=== PATIENT | female | born 1975 | race Caucasian/White ===

== ENCOUNTER 2019-05-27 08:49 | Emergency (ER) | payer MEDICAID ==
[~2019-05-27] VITALS: Ht 165.1 cm; Wt 113.4 kg
[~2019-05-27 08:49] MED LIST: ALB5IS NEB; ALBU18 INH; ASPI81TA10 PO; ATEN50TA PO; BUPR300T30 PO; ENAL20TA PO; FLUT110A INH; GABA400C11 PO; HYDR-2595 PO; IBUP800T24 PO; LEVO100T8 PO; LORA-352 PO; MECL-87 PO; MONT10TA34 PO; MULT50TA14 PO; ONDA-143 PO; QUET200T4 PO
[2019-05-27 10:41] VITALS: BP 158/94
[2019-05-27] MEDS ORDERED: LIDOCAINE 1% HCL (LOCAL ANESTH.) INJ 20ML MDV IJ ONE (12:00)
[2019-05-27] MEDS ORDERED: BACITRACIN TOP OINT 1 UD PKG TOP ONE (12:30)
== END 2019-05-27 12:37 | disposition home or self-care (01) ==
LOC: ER 08:50
DX: S01.111A Laceration without foreign body of right eyelid and periocular area, initial encounter (principal); J44.9 Chronic obstructive pulmonary disease, unspecified; E11.9 Type 2 diabetes mellitus without complications; I10 Essential (primary) hypertension; F17.210 Nicotine dependence, cigarettes, uncomplicated; Z90.710 Acquired absence of both cervix and uterus; Z88.1 Allergy status to other antibiotic agents; Z88.2 Allergy status to sulfonamides; Z79.899 Other long term (current) drug therapy; Z79.1 Long term (current) use of non-steroidal anti-inflammatories (NSAID); W22.8XXA Striking against or struck by other objects, initial encounter; Y93.89 Activity, other specified; Y92.89 Other specified places as the place of occurrence of the external cause; Y99.8 Other external cause status
CPT/HCPCS: 12011; 70450; 99284; J2001

== ENCOUNTER 2024-05-29 15:07 | Inpatient (IN) | payer MEDICAID ==
[~2024-05-29] VITALS: Ht 162.6 cm; Wt 78.3 kg
[~2024-05-29 15:07] MED LIST changes: +ENAL1TAB48 PO; -ENAL20TA PO; +GABA-1251 PO; -GABA400C11 PO; +IBUP-1456 PO; -IBUP800T24 PO; -LORA-352 PO; +LORA10TA6 PO; -MECL-87 PO; +MECL-90 PO; +MONT-8 PO; -MONT10TA34 PO
--- NOTE | 2024-05-29 15:36 | ECG ---
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
[2024-05-29 16:42] LABS: Basophils # (auto) 0 10 ^3/uL (0-0.2); Basophils % (auto) 0.4 % (0.0-2.0); Eosinophils # (auto) 0 10 ^3/uL (0-0.8); Eosinophils % (auto) 0.1 % (0.0-7.0); Hematocrit 45.6 % (36.0-46.0); Hemoglobin 15.3 g/dL (12.2-16.2); Lymphocytes # (auto) 0.6 10 ^3/uL (0.4-5.4); Mean Corpuscular Hemoglobin 27.7 pg (28.0-32.0); Mean Corpuscular Hgb Conc. 33.5 g/dL (32.0-36.0); Mean Corpuscular Volume 82.8 fL (80.0-100.0); Monocytes # (auto) 1.1 10 ^3/uL (0-1.3); Monocytes % (auto) 14.1 % (0.0-12.0); Neutrophils # (auto) 6.2 10 ^3/uL (1.6-8.6); Neutrophils % (auto) 78.4 % (37.0-80.0); Nucleated Red Blood Cells % 0.2 %; Platelet Count (auto) 228 10^3/uL (140-450); Red Cell Distribution Width 15.5 % (11.8-14.3); White Blood Cell 7.9 10^3/uL (4.4-10.8)
--- NOTE | 2024-05-29 16:49 | DVH ---
CHEST RADIOGRAPH Indication: SOB Technique: Single frontal view of the chest was obtained Comparison: None FINDINGS: Lines and Tubes: None Lungs: Consolidation of the left lower lobe is noted may represent infiltrate atelectasis and/or smal l effusion. Pleura: No effusion. No pneumothorax. Cardiomediastinal contours: Unremarkable Bones: No acute osseous abnormality. IMPRESSION: 1. Increased density in the retrocardiac area of the left lower lobe.
[2024-05-29 16:52] LABS: Alanine Aminotransferase 25 U/L (7-40); Albumin 4.1 g/dL (3.2-4.8); Alkaline Phosphatase 103 U/L (46-116); Anion Gap 9 (5-15); Aspartate Aminotransferase 23 U/L (13-40); BUN/Creatinine Ratio 12.2 (10.0-20.0); Blood Urea Nitrogen 10 mg/dL (9-23); Calcium 9.5 mg/dL (8.7-10.4); Carbon Dioxide 30 mmol/L (20-31); Chloride 101 mmol/L (98-107); Glucose 102 mg/dL (74-106); Magnesium 1.9 mg/dL (1.6-2.6); Potassium 3.8 mmol/L (3.5-5.1); Sodium 140 mmol/L (136-145)
[2024-05-29 16:53] LABS: Bilirubin, Total 0.2 mg/dL (0.2-1.0); Total Protein 6.6 g/dL (5.7-8.2)
--- NOTE | 2024-05-29 16:59 | ED.PDOC ---
SOB-HPI HPI Comments HPI: Poor Historian. 49-year-old female presents to emergency department for evaluation want to do a history of multiple complains of nasal congestion, chest tightness, generalized weakness, productive cough. Patient denies any fever. Past Medcial History: Radha, CHF, COPD, costochondritis, asthma, kidney infection, Past Surgical History: , partial hysterectomy REVIEW OF SYSTEMS: CONSTITUTIONAL: Denies acute: fever, diaphoresis, chills, generalized weakness. HEAD: Denies acute: headache, photophobia Eyes: Denies acute: Double vision, vision loss, eye pain, eye discharge. EARS: Denies acute: tinnitus, hearing loss, ear discharge, ear pain, THROAT: Denies acute: sore throat, swelling, difficulty swallowing , pain with swallowing, change in voice. NECK: Denies acute: neck pain, neck swelling, stiff neck. HEART: Denies acute : chest pain, palpitations, LUNGS: Denies acute: SOB, wheezing, cough, hemoptysis ABDOMEN: Denies acute: abdominal pain, Nausea, Vomiting, diarrhea, melena , hematemesis, hematochezia SKIN: Denies acute: rash, redness, lesions, itchiness. EXTREMITIES: Denies acute: calf pain, numbness, tingling, weakness, denies pain in extremity. Denies acute: Low back pain. Neuro: Denies acute: focal neurological deficit, motor or sensory focal neurological deficit, tremors, seizure like activity, confusion, dizziness, change in mental status, loss of bowel or bladder function, cauda equina like symptoms. : Denies acute: dysuria, hematuria, flank pain, increase in urinary frequency. PSYCH: Denies acute: hallucination, suicidal ideation, homicidal ideation. FEMALE: Denies acute: abnormal vaginal bleeding, foul odor, unusual discharge. PHYSICAL EXAM: General: no acute distress, awake and alert. Head: normocephalic, atraumatic. Neck: supple, trachea is midline, no swelling. Throat: Normal phonation. Eyes:, no erythema, no purulent discharge, no proptosis, no icterus. Heart: regular rate, regular rhythm, no significant murmur appreciated. Lungs: no apparent respiratory distress, Able to speak in full sentences. Minimal wheezing, mild rhonchi, no crackles. No stridors Clear to auscultation bilaterally. Abdomen: non tender to palpation, non distended, soft, no guarding, no rebound, + bowel sounds. Neuro: Awake, Alert, oriented to name, self, situation, follows commands GCS=15. Speech is normal. Skin: no petechia, no purpura, no cyanosis, non-pale, not jaundice. Lower extremities: --1/4 - Pitting edema no deformity, no focal swelling, no calf TTP. Makes eye contact. moves all four extremities. Face: no apparent facial droop. 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 History: 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 Family History Family History: No family hx of Cancer, No family hx of DM, No family hx of Heart dottie, No family hx of HTN, No family hx of Stroke Social History Smoker: Cigarettes, Less Than 1 Pack/Day Alcohol: Occasionally Drugs: Denies Drug Use Lives In: Home X-Ray, Labs, Meds, VS Vital Signs Date Time Temp Pulse Resp B/P (MAP) Pulse Ox O2 Delivery O2 Flow Rate FiO2 05/29/24 17:55 20 97 Room Air* 0 21 05/29/24 15:24 106 05/29/24 15:14 Nasal Cannula* 4 36 05/29/24 15:14 98.7 102 22 139/88 (105) 99 Lab Test 05/29/24 17:48 05/29/24 16:15 Range/Units Troponin I High Sensitivity < 3 L < 3 L </=34 ng/L White Blood Count 7.9 4.4-10.8 10^3/uL Red Blood Count 5.50 H 4.0-5.20 10^6/uL Hemoglobin 15.3 12.2-16.2 g/dL Hematocrit 45.6 36.0-46.0 % Mean Corpuscular Volume 82.8 80.0-100.0 fL Mean Corpuscular Hemoglobin 27.7 L 28.0-32.0 pg Mean Corpuscular Hemoglobin Concent 33.5 32.0-36.0 g/dL Red Cell Distribution Width 15.5 H 11.8-14.3 % Platelet Count 228 140-450 10^3/uL Mean Platelet Volume 8.3 6.9-10.8 fL Neutrophils (%) (Auto) 78.4 37.0-80.0 % Lymphocytes (%) (Auto) 7.0 L 10.0-50.0 % Monocytes (%) (Auto) 14.1 H 0.0-12.0 % Eosinophils (%) (Auto) 0.1 0.0-7.0 % Basophils (%) (Auto) 0.4 0.0-2.0 % Neutrophils # (Auto) 6.2 1.6-8.6 10 ^3/uL Lymphocytes # (Auto) 0.6 0.4-5.4 10 ^3/uL Monocytes # (Auto) 1.1 0-1.3 10 ^3/uL Eosinophils # (Auto) 0 0-0.8 10 ^3/uL Basophils # (Auto) 0 0-0.2 10 ^3/uL Nucleated Red Blood Cells 0.2 % D-Dimer, Quantitative 0.50 H 0.0-0.49 mg/L FEU Sodium Level 140 136-145 mmol/L Potassium Level 3.8 3.5-5.1 mmol/L Chloride Level 101 98-107 mmol/L Carbon Dioxide Level 30 20-31 mmol/L Anion Gap 9 5-15 Blood Urea Nitrogen 10 9-23 mg/dL Creatinine 0.82 0.550-1.02 mg/dL Glomerular Filtration Rate Calc 87 >90 mL/min BUN/Creatinine Ratio 12.2 10.0-20.0 Serum Glucose 102 74-106 mg/dL Lactic Acid Level 1.3 0.4-2.0 mmol/L Calcium Level 9.5 8.7-10.4 mg/dL Magnesium Level 1.9 1.6-2.6 mg/dL Total Bilirubin 0.2 0.2-1.0 mg/dL Aspartate Amino Transferase (AST) 23 13-40 U/L Alanine Aminotransferase (ALT) 25 7-40 U/L Alkaline Phosphatase 103 46-116 U/L B-Type Natriuretic Peptide 16.78 0-100 pg/mL Total Protein 6.6 5.7-8.2 g/dL Albumin 4.1 3.2-4.8 g/dL Current Medications Medications (Trade) Dose Ordered Sig/Gissel Route Start Time Stop Time Status Last Admin Ceftriaxone Sodium 50 ml @ 100 mls/hr ONCE ONCE IV 05/29/24 17:15 05/29/24 17:48 DC 05/29/24 20:09 Ipratropium [place] (Atrovent Medneb) 1 mg ONCE ONCE NEB 05/29/24 17:15 05/29/24 17:48 DC 05/29/24 17:54 Methylprednisolone Sodium Succinate (Solu Medrol) 125 mg ONCE ONCE IV 05/29/24 17:15 05/29/24 17:48 DC 05/29/24 20:09 Albuterol (Ventolin Medneb) 2.5 mg ONCE ONCE NEB 05/29/24 17:15 05/29/24 17:48 DC 05/29/24 17:54 Aspirin 325 mg ONCE ONCE PO 05/29/24 17:15 05/29/24 17:48 DC 05/29/24 20:19 [place] [id number] Ph: [phone] DIAGNOSTIC IMAGING Diagnostic Imaging Report : [id number] Signed PATIENT: MADIE DOUGHERTY ACCT: [id number] UNIT: [id number] : 1975 LOC: ER ROOM / BED: / AGE / SEX: 49 / F ADM STATUS: REG ER SERVICE 1540 ORDERING PHYSICIAN: JACINTO FISHER DO PROCEDURE(s): CXRP - CHEST PORTABLE REASON: SOB ORDER NUMBER(s): [id number], ACCESSION NUMBER(s): [id number] CHEST RADIOGRAPH Indication: SOB Technique: Single frontal view of the chest was obtained Comparison: None FINDINGS: Lines and Tubes: None Lungs: Consolidation of the left lower lobe is noted may represent infiltrate atelectasis and/or small effusion. Pleura: No effusion. No pneumothorax. Cardiomediastinal contours: Unremarkable Bones: No acute osseous abnormality. IMPRESSION: 1. Increased density in the retrocardiac area of the left lower lobe. ATED BY: HARSHAL MORATAYA Jr., DO DICTATED DATE/TIME: 05/29/241645 SIGNED BY: HARSHAL MORATAYA Jr., SIGNED DATE/TIME: 05/29/241645 CC: Departure 1 Departure Time of Disposition: 19:29 Impression: Primary Impression: Dyspnea Additional Impression: Hypoxemia Disposition: 09 ADMITTED INPATIENT Admit to: Tele Condition: Guarded Discharged With: Self I personally scribed for JACINTO FISHER DO ([email or web address]) on 05/29/24 at 16:59. Electronically submitted by Joanne Cantu ([email or web address]). I personally scribed for JACINTO FISHER DO ([email or web address]) on 05/29/24 at 17:00. Electronically submitted by Joanne Cantu ([email or web address]). I personally scribed for JACINTO FISHER DO ([email or web address]) on 05/30/24 at 01:32. Electronically submitted by Drake Olivo ([email or web address]). JACINTO FISHER DO May 29, 2024 16:59
[2024-05-29] MEDS: IPRATROPIUM BROM 0.5 MG/2.5ML INH SOL NEB ONE (17:54)
[2024-05-29] MEDS: ALBUTEROL SULF 2.5 MG/0.5ML(0.5%) NEB SOLN NEB ONE (17:54)
[2024-05-29] MEDS: IPRATROPIUM BROM 0.5 MG/2.5ML INH SOL ONE (17:55)
[2024-05-29] MEDS: ALBUTEROL SULF 2.5 MG/0.5ML(0.5%) NEB SOLN ONE (17:55)
[2024-05-29 19:54] VITALS: PULSE 109; RESP 18; O2SAT 91
[2024-05-29] MEDS: cefTRIAXone 1GM/50ML D5W 50 ML IV ONE (20:09)
[2024-05-29] MEDS: NITROGLYCERIN 0.4 MG SL TAB SL ONE (20:09)
[2024-05-29] MEDS: methylPREDNISolone SOD SUCC 125 MG/2 ML VL IV ONE (20:09)
[2024-05-29] MEDS: ASPirin 325 MG TAB PO ONE (20:19)
[2024-05-29 20:33] VITALS: BP 139/80; PULSE 98; RESP 22; O2SAT 97
--- NOTE | 2024-05-29 21:02 | DVHHP2 ---
History of Present Illness Reason for Visit: Shortness of breath History of Present Illness 49-year-old female with a history of COPD and congestive heart failure presents for evaluation of shortness for breath. Patient presents with a two day history worsening shortness for breath with associated nonproductive cough and chills. Currently denies chest pain. No palpitations. No other acute complaints reported. Past Medical History COPD, congestive heart failure Radha's thyroiditis asthma and diabetes mellitus Past Surgical History Hysterectomy Family History Noncontributory Smoke: No ALCOHOL: none Drugs: None Lives: with Family Review of Systems Review of Systems Review of systems negative otherwise addressed HPI Allergies: Coded Allergies: Ciprofloxacin (Verified Allergy, Unknown, 05/27/19) Sulfa Drugs (Verified Allergy, Unknown, 05/27/19) Medications Current Medications Medications Dose Ordered Sig/Gissel Route Start Time Stop Time Status Last Admin Dose Admin Albuterol 2.5 mg Q6HPRN PRN NEB 05/29/24 19:45 Levothyroxine Sodium 100 mcg QAM@0600 PO 05/30/24 06:00 Montelukast Sodium 10 mg HS PO 05/29/24 22:00 Gabapentin 400 mg TID PO 05/29/24 22:00 UNV Enalapril Maleate 20 mg DAILY PO 05/30/24 10:00 Atenolol 50 mg DAILY PO 05/30/24 10:00 Ceftriaxone Sodium 50 ml @ 100 mls/hr DAILY@09 IV 05/30/24 09:00 Azithromycin 250 ml @ 125 mls/hr DAILY IV 05/30/24 10:00 UNV Temazepam 15 mg QHSP PRN PO 05/29/24 19:45 Ondansetron HCl 4 mg Q4HP PRN IV 05/29/24 19:45 UNV Acetaminophen 650 mg Q6HP PRN PO 05/29/24 19:45 Exam Vital Signs Vital Signs Date Time Temp Pulse Resp B/P (MAP) Pulse Ox O2 Delivery O2 Flow Rate FiO2 05/29/24 20:33 98 22 139/80 97 10.0 55 05/29/24 19:54 98.7 98.7 05/29/24 19:54 Simple Mask* Exam Gen: 49 year distress obese Skin: Warm, dry, normal color and texture, no rash. HEENT: Normocephalic atraumatic, mucous membranes moist and pink. Neck: Cervical and supraclavicular nodes normal without enlargement, trachea is midline, thyroid gland is normal without masses. Pulmonary: Wheeze Cardiac: Regular rate and rhythm. No murmur Abdomen: Soft, nontender, nondistended, bowel sounds present all 4 quadrants, no guarding, no rigidity, no organomegaly. Extremities: No cyanosis, clubbing, no edema Neuro: Cranial nerves II through XII grossly intact, normal affect and speech, no focal motor deficits. Labs/Xrays ORDERING PHYSICIAN: JACINTO FISHER DO PROCEDURE(s): CXRP - CHEST PORTABLE REASON: SOB ORDER NUMBER(s): [id number], ACCESSION NUMBER(s): [id number] CHEST RADIOGRAPH Indication: SOB Technique: Single frontal view of the chest was obtained Comparison: None FINDINGS: Lines and Tubes: None Lungs: Consolidation of the left lower lobe is noted may represent infiltrate atelectasis and/or small effusion. Pleura: No effusion. No pneumothorax. Cardiomediastinal contours: Unremarkable Bones: No acute osseous abnormality. IMPRESSION: 1. Increased density in the retrocardiac area of the left lower lobe. Labs Test 05/29/24 20:05 05/29/24 17:48 05/29/24 16:15 Range/Units Troponin I High Sensitivity < 3 L </=34 ng/L White Blood Count 7.9 4.4-10.8 10^3/uL Red Blood Count 5.50 H 4.0-5.20 10^6/uL Hemoglobin 15.3 12.2-16.2 g/dL Hematocrit 45.6 36.0-46.0 % Mean Corpuscular Volume 82.8 80.0-100.0 fL Mean Corpuscular Hemoglobin 27.7 L 28.0-32.0 pg Mean Corpuscular Hemoglobin Concent 33.5 32.0-36.0 g/dL Red Cell Distribution Width 15.5 H 11.8-14.3 % Platelet Count 228 140-450 10^3/uL Mean Platelet Volume 8.3 6.9-10.8 fL Neutrophils (%) (Auto) 78.4 37.0-80.0 % Lymphocytes (%) (Auto) 7.0 L 10.0-50.0 % Monocytes (%) (Auto) 14.1 H 0.0-12.0 % Eosinophils (%) (Auto) 0.1 0.0-7.0 % Basophils (%) (Auto) 0.4 0.0-2.0 % Neutrophils # (Auto) 6.2 1.6-8.6 10 ^3/uL Lymphocytes # (Auto) 0.6 0.4-5.4 10 ^3/uL Monocytes # (Auto) 1.1 0-1.3 10 ^3/uL Eosinophils # (Auto) 0 0-0.8 10 ^3/uL Basophils # (Auto) 0 0-0.2 10 ^3/uL Nucleated Red Blood Cells 0.2 % D-Dimer, Quantitative 0.50 H 0.0-0.49 mg/L FEU Sodium Level 140 136-145 mmol/L Potassium Level 3.8 3.5-5.1 mmol/L Chloride Level 101 98-107 mmol/L Carbon Dioxide Level 30 20-31 mmol/L Anion Gap 9 5-15 Blood Urea Nitrogen 10 9-23 mg/dL Creatinine 0.82 0.550-1.02 mg/dL Glomerular Filtration Rate Calc 87 >90 mL/min BUN/Creatinine Ratio 12.2 10.0-20.0 Serum Glucose 102 74-106 mg/dL Lactic Acid Level 1.3 0.4-2.0 mmol/L Calcium Level 9.5 8.7-10.4 mg/dL Magnesium Level 1.9 1.6-2.6 mg/dL Total Bilirubin 0.2 0.2-1.0 mg/dL Aspartate Amino Transferase (AST) 23 13-40 U/L Alanine Aminotransferase (ALT) 25 7-40 U/L Alkaline Phosphatase 103 46-116 U/L B-Type Natriuretic Peptide 16.78 0-100 pg/mL Total Protein 6.6 5.7-8.2 g/dL Albumin 4.1 3.2-4.8 g/dL Assessment/Plan Assessment/Plan Assessment Community-acquired pneumonia diabetes mellitus Hypertension Morbid obesity Plan Admit The patient surge to the hospitalist Rocephin/azithromycin Med nebs Resume home medications continue treatment per orders. Plan discussed with: Patient My Orders Orders - WESTON MONDRAGONCNP Procedure Category Date Status Time Albuterol Medneb PHA 05/29/24 In Process (Ventolin Medneb) 19:45 Levothyroxine Tablet PHA 05/30/24 In Process (Synthroid Tablet) 06:00 Montelukast Tablet PHA 05/29/24 In Process (Singulair Tablet) 22:00 Gabapentin Capsule PHA 05/29/24 Logged (Neurontin Capsule) 22:00 Enalapril Tablet PHA 05/30/24 In Process (Vasotec Tablet) 10:00 Atenolol Tablet PHA 05/30/24 In Process (Tenormin Tablet) 10:00 Ceftriaxone 1gm/50ml PHA 05/30/24 In Process D5w (Rocephin) 09:00 Azithromycin 500mg/ PHA 05/30/24 Logged 250ml (Zithromax 50 10:00 Basic Metabolic Panel LAB 05/30/24 Verified 04:00 Admit ADMIT 05/29/24 Transmitted 19:33 Temazepam (Restoril) PHA 05/29/24 In Process 19:45 Ondansetron Hcl PHA 05/29/24 Logged (Zofran) 19:45 Complete Blood Count LAB 05/30/24 Verified 04:00 Cardiac DIET 05/30/24 Transmitted Diet-2gna,Lofat,Lochol Breakfast Condition: Stable MARGO 05/29/24 In Process 19:33 Acetaminophen Tablet PHA 05/29/24 In Process (Tylenol Tablet) 19:45 Bedrest With Bathroom MARGO 05/29/24 In Process Privileg 19:33 Methylprednisolone PHA 05/29/24 Logged Sod Succ (Solu Medrol 22:00 Date of Service: May 29, 2024 Billing Provider: WESTON MONDRAGON Common Visit Codes: [id number] INP/OBS CARE (HIGH) WESTON MONDRAGON May 29, 2024 21:02
[2024-05-29 21:17] LABS: COVID19 ANTIGEN SOFIA FIA NEGATIVE (NEGATIVE); Rapid Influenza A Negative (Negative); Rapid Influenza B Negative (Negative)
[2024-05-29] MEDS: ACETAMINOPHEN 325 MG TAB PO PRN (21:38)
[2024-05-29] MEDS: MONTELUKAST SODIUM 10 MG TAB PO SCH (22:05)
[2024-05-29] MEDS: ALBUTEROL SULF 2.5 MG/0.5ML(0.5%) NEB SOLN NEB PRN (22:18)
[2024-05-29 22:38] LABS: Base Excess 1.6 mmol/L (-2.0-3.0)
[2024-05-29] MEDS: EPINEPHrine HCL 0.5 ML NEB NEB ONE (22:52)
[2024-05-29] MEDS: MAGNESIUM SULFATE 1GM/100ML 100 ML IV ONE (23:13)
[2024-05-29] MEDS: GABAPENTIN 400 MG CAP PO SCH (23:13)
[2024-05-29 23:34] VITALS: PULSE 94; RESP 32; O2SAT 94
--- NOTE | 2024-05-29 23:49 | DVHINCON2 ---
Date of service: May 29, 2024 Referring Physician Cole Funez NP Reason for Consultation Acute hypoxic respiratory failure and asthma exacerbation History of Present Illness A 49-year-old woman with past medical history of COPD, asthma, congestive heart failure, Radha's thyroiditis, and diabetes who presents to ED today for evaluation of shortness for breath. Patient presents c/o 2-day history of worsening shortness of breath with associated nonproductive cough and chills. She denies chest pain or palpitations. No other acute complaints reported. Patient was admitted for further care and pulmonary consultation is requested for evaluation and management of acute hypoxic respiratory failure and asthma exacerbation. Review of Systems: 14-point review of systems negative unless otherwise noted above. Past Medical History: COPD, congestive heart failure, Radha's thyroiditis, asthma and diabetes mellitus Past Surgical History: Hysterectomy Medications: Reviewed. Allergies: Ciprofloxacin and sulfa drugs Family History: Cancer, diabetes, stroke. Social History: Nonsmoker. No alcohol or illicit drug use. Family History: Cancer Family history: Diabetes mellitus Stroke Allergies: Coded Allergies: Ciprofloxacin (Verified Allergy, Unknown, 05/27/19) Sulfa Drugs (Verified Allergy, Unknown, 05/27/19) Home Meds Reported Medications Chlorpheniramine Maleate (Allergy) 4 Mg Tab, 1 TAB PO TID for 10 Days 05/31/24 Prednisone (Prednisone) 10 Mg Tab, 10 MG PO BID, MG 05/31/24 Sildenafil Citrate (Revatio) 20 Mg Tab, 20 MG PO TID, TAB 05/31/24 Lorazepam (ATIVAN TABLET) 0.5 Mg Tb, 2 MG PO BIDPRN PRN for ANXIETY, TAB 05/31/24 Levothyroxine Sodium (SYNTHROID TABLET) 50 Mcg Tb, 25 MCG PO QAM, TAB 05/31/24 Amlodipine Besylate (NORVASC TABLET) 5 Mg Tb, 5 MG PO DAILY, TAB 05/31/24 Furosemide (Furosemide) 40 Mg Tab, 40 MG PO BID, TAB 05/31/24 Dicyclomine Hcl (Dicyclomine Hcl) 20 Mg Tab, 20 MG PO TID, TAB 05/31/24 Albuterol Sulfate (Ventolin) 2.5 Mg/0.5 Ml Nb, 1 VIAL NEB Q6HR PRN for PRN, #120 VIAL 5 Refills 12/19/14 Fluticasone Propionate (FLOVENT HFA 110Mcg INH) 110 Mcg Ih, INH DAILY, #12 12/19/14 Gabapentin (Gabapentin) 400 Mg Cap, 600 MG PO TID, #270 12/19/14 Atenolol (Atenolol) 50 Mg Tab, PO DAILY, #90 12/19/14 Aspirin (Aspirin Ec Low Dose) 81 Mg Tab, PO DAILY, #90 12/19/14 Montelukast Sodium (MONTELUKAST SODIUM) 10 Mg Tab, PO HS, #30 12/19/14 Albuterol Sulfate (Ventolin Hfa) Aer, INH DAILY, #18 12/19/14 Hydrocodone-Acetaminophen (Hydrocodone/Acetaminophen) 1 Tab Tab, PO Q6HP for PAIN, #90 12/19/14 Current Medications Current Medications Medications (Trade) Dose Ordered Sig/Gissel Route PRN Reason Start Time Stop Time Status Last Admin Albuterol (Ventolin Medneb) 2.5 mg Q6HPRN PRN NEB SHORTNESS OF BREATH 05/29/24 19:45 05/29/24 22:18 Levothyroxine Sodium (Synthroid Tablet) 100 mcg QAM@0600 PO 05/30/24 06:00 Montelukast Sodium (Singulair Tablet) 10 mg HS PO 05/29/24 22:00 05/29/24 22:05 Gabapentin (Neurontin Capsule) 400 mg TID PO 05/29/24 22:00 05/29/24 23:13 Enalapril Maleate (Vasotec Tablet) 20 mg DAILY PO 05/30/24 10:00 Atenolol (Tenormin Tablet) 50 mg DAILY PO 05/30/24 10:00 Ceftriaxone Sodium 50 ml @ 100 mls/hr DAILY@09 IV 05/30/24 09:00 Azithromycin 250 ml @ 125 mls/hr DAILY IV 05/30/24 10:00 Temazepam (Restoril) 15 mg QHSP PRN PO FOR INSOMNIA 05/29/24 19:45 Ondansetron HCl (Zofran) 4 mg Q4HP PRN IV NAUSEA / VOMITING 05/29/24 19:45 Acetaminophen (Tylenol Tablet) 650 mg Q6HP PRN PO PAIN SCALE 1-3 OR TEMP>100.4 05/29/24 19:45 05/29/24 21:38 Methylprednisolone Sodium Succinate (Solu Medrol) 60 mg BID IV 05/30/24 10:00 Albuterol (Ventolin Medneb) 2.5 mg Q6HP NEB 05/30/24 00:00 UNV Vital Signs Vital Signs Date Time Temp Pulse Resp B/P (MAP) Pulse Ox O2 Delivery O2 Flow Rate FiO2 05/29/24 23:34 94 32 94 Simple Mask* 10 99 05/29/24 22:45 132/82 (99) 05/29/24 21:45 98.6 98.6 Physical Exam Gen.: Patient lying in bed in no apparent distress. On supplemental oxygen. Head: Normocephalic, atraumatic. Eyes: EOMI/PERRLA. Ears: Normal hearing. Normal anatomy. Neck/trachea: Trachea midline, supple. Nose: Normal external anatomy. Mouth: Moist mucous membranes. Chest: Decreased air entry bilaterally. No wheezing or rhonchi. Cardiovascular: Positive S1, positive S2. Regular rate and rhythm. Abdomen: Positive bowel sounds in all 4 quadrants. Soft, non-tender, non- distended. : Deferred. Rectal: Deferred. Skin: Warm, dry. Intact. Extremities: 2+ radial pulses bilaterally. No lower extremity edema. Neuro: Awake, alert, oriented x3. No gross motor or sensory deficits. Cranial nerves II through XII intact. Gait not assessed. Labs/Diagnostic Data Labs Test 05/29/24 22:35 05/29/24 22:33 05/29/24 20:05 05/29/24 17:48 Range/Units D-Dimer, Quantitative 0.51 H 0.0-0.49 mg/L FEU Blood Gas Specimen Type Arterial Blood Gas Sample Site Left brachial Blood Gas Patient Temperature 37.0 Arterial Blood Date Drawn [id number] Arterial Blood pH 7.418 7.350-7.450 Arterial Blood Partial Pressure CO2 41.6 32.0-45.0 mmHg Arterial Blood Partial Pressure O2 77.5 L 83.0-108.0 mmHg Arterial Blood HCO3 26.3 21.0-28.0 mmol/L Arterial Blood Oxygen Saturation 95.1 94.0-98.0 % Arterial Blood Base Excess 1.6 -2.0-3.0 mmol/L Arterial Blood Oxyhemoglobin 94.1 94.0-98.0 % Arterial Blood Carboxyhemoglobin 0.6 0.5-1.5 % Arterial Blood Methemoglobin 0.5 0.0-1.5 % [place] Test N/a Blood Gas Total Hemoglobin 15.70 12.0-16.0 g/dL Blood Gas Liter Flow 10.00 Blood Gas Modality Mask - simple FiO2 % 55.0 Influenza Type A Antigen Negative Negative Influenza Type B Antigen Negative Negative SARS-CoV-2 Antigen (Rapid) Negative NEGATIVE Troponin I High Sensitivity < 3 L </=34 ng/L Test 05/29/24 16:15 Range/Units White Blood Count 7.9 4.4-10.8 10^3/uL Red Blood Count 5.50 H 4.0-5.20 10^6/uL Hemoglobin 15.3 12.2-16.2 g/dL Hematocrit 45.6 36.0-46.0 % Mean Corpuscular Volume 82.8 80.0-100.0 fL Mean Corpuscular Hemoglobin 27.7 L 28.0-32.0 pg Mean Corpuscular Hemoglobin Concent 33.5 32.0-36.0 g/dL Red Cell Distribution Width 15.5 H 11.8-14.3 % Platelet Count 228 140-450 10^3/uL Mean Platelet Volume 8.3 6.9-10.8 fL Neutrophils (%) (Auto) 78.4 37.0-80.0 % Lymphocytes (%) (Auto) 7.0 L 10.0-50.0 % Monocytes (%) (Auto) 14.1 H 0.0-12.0 % Eosinophils (%) (Auto) 0.1 0.0-7.0 % Basophils (%) (Auto) 0.4 0.0-2.0 % Neutrophils # (Auto) 6.2 1.6-8.6 10 ^3/uL Lymphocytes # (Auto) 0.6 0.4-5.4 10 ^3/uL Monocytes # (Auto) 1.1 0-1.3 10 ^3/uL Eosinophils # (Auto) 0 0-0.8 10 ^3/uL Basophils # (Auto) 0 0-0.2 10 ^3/uL Nucleated Red Blood Cells 0.2 % Sodium Level 140 136-145 mmol/L Potassium Level 3.8 3.5-5.1 mmol/L Chloride Level 101 98-107 mmol/L Carbon Dioxide Level 30 20-31 mmol/L Anion Gap 9 5-15 Blood Urea Nitrogen 10 9-23 mg/dL Creatinine 0.82 0.550-1.02 mg/dL Glomerular Filtration Rate Calc 87 >90 mL/min BUN/Creatinine Ratio 12.2 10.0-20.0 Serum Glucose 102 74-106 mg/dL Lactic Acid Level 1.3 0.4-2.0 mmol/L Calcium Level 9.5 8.7-10.4 mg/dL Magnesium Level 1.9 1.6-2.6 mg/dL Total Bilirubin 0.2 0.2-1.0 mg/dL Aspartate Amino Transferase (AST) 23 13-40 U/L Alanine Aminotransferase (ALT) 25 7-40 U/L Alkaline Phosphatase 103 46-116 U/L B-Type Natriuretic Peptide 16.78 0-100 pg/mL Total Protein 6.6 5.7-8.2 g/dL Albumin 4.1 3.2-4.8 g/dL Assessment Impression: Acute hypoxic respiratory failure Asthma exacerbation Stridor Obesity hypoventilation syndrome Narcolepsy Morbid obesity Plan: Supplemental oxygen 10 LPM simple mask Titrate to keep O2 sats between 90-94% Taper O2 as tolerated. BiPAP PRN. Obtain STAT ABG STAT D-dimer Racemic epinephrine Continue bronchodilators. IV steroids Monitor renal function. Monitor electrolytes. Supplement as necessary. IV magnesium supplementation Monitor ins and outs Diet and lifestyle modifications for weight reduction Morbid obesity - complicates all care DVT prophylaxis. Prognosis: Poor given patient's multiple co-morbidities. Rest of plan per hospitalist and other consultants. Thank you, SOMMER Funez, for allowing me to participate in this patient's care. Further recommendations will depend on the patient's clinical course. Please do not hesitate to contact me if you have any questions or concerns. This medical document was created using an electronic medical record system with [employer] dictation system. Although these documentations are being carefully reviewed, there may still be some phonetic and typographical changes. The errors are purely typographical, due to imperfection on the software program, and do not reflect any compromise in the patient's medical care. Plan discussed with: Patient, Other (RN/SOMMER Funez/) BARBARA CASTRO MD May 29, 2024 23:49
[2024-05-30] VITALS (17 sets, daily range): BP systolic 104–135; BP diastolic 57–112; PULSE 58–83; RESP 18–22; O2SAT 93–100
[2024-05-30] MEDS: MAGNESIUM SULFATE 1GM/100ML 100 ML IV ONE (00:18)
[2024-05-30] MEDS: LEVOTHYROXINE SODIUM 100 MCG TAB PO SCH (06:16)
[2024-05-30] MEDS: ALBUTEROL SULF 2.5 MG/0.5ML(0.5%) NEB SOLN NEB SCH (06:41)
[2024-05-30 06:53] LABS: Basophils # (auto) 0 10 ^3/uL (0-0.2); Basophils % (auto) 0.5 % (0.0-2.0); Eosinophils # (auto) 0 10 ^3/uL (0-0.8); Eosinophils % (auto) 0.1 % (0.0-7.0); Hematocrit 44.9 % (36.0-46.0); Hemoglobin 14.8 g/dL (12.2-16.2); Lymphocytes # (auto) 0.3 10 ^3/uL (0.4-5.4); Lymphocytes % (auto) 5.1 % (10.0-50.0); Mean Corpuscular Hemoglobin 27.7 pg (28.0-32.0); Monocytes # (auto) 0.1 10 ^3/uL (0-1.3); Monocytes % (auto) 1.6 % (0.0-12.0); Neutrophils # (auto) 5.2 10 ^3/uL (1.6-8.6); Neutrophils % (auto) 92.7 % (37.0-80.0); Platelet Count (auto) 221 10^3/uL (140-450); Red Blood Cells 5.35 10^6/uL (4.0-5.20); Red Cell Distribution Width 15.5 % (11.8-14.3); White Blood Cell 5.7 10^3/uL (4.4-10.8)
[2024-05-30 07:24] LABS: Anion Gap 10 (5-15); Carbon Dioxide 26 mmol/L (20-31); Chloride 100 mmol/L (98-107); Sodium 136 mmol/L (136-145)
[2024-05-30 07:25] LABS: Calcium 9.4 mg/dL (8.7-10.4)
[2024-05-30 07:32] LABS: Glucose 166 mg/dL (74-106)
[2024-05-30 07:35] LABS: BUN/Creatinine Ratio 14.1 (10.0-20.0)
[2024-05-30 07:37] LABS: Blood Urea Nitrogen 11 mg/dL (9-23); Potassium 4.8 mmol/L (3.5-5.1)
[2024-05-30] MEDS: cefTRIAXone 1GM/50ML D5W 50 ML IV SCH (09:26)
[2024-05-30] MEDS: AZITHROMYCIN 500MG/ 250ML 250 ML IV SCH (10:28)
[2024-05-30] MEDS: methylPREDNISolone SOD SUCC 125 MG/2 ML VL IV SCH (10:29)
[2024-05-30] MEDS: ATENOLOL 25 MG TAB PO SCH (10:30)
[2024-05-30] MEDS: ENALAPRIL MALEATE 10 MG TAB PO SCH (10:30)
[2024-05-30 11:28] LABS: Base Excess 2.3 mmol/L (-2.0-3.0)
--- NOTE | 2024-05-30 12:01 | DVH ---
CHEST RADIOGRAPH Indication: dyspnea Technique: Single frontal view of the chest was obtained COMPARISON: XY CHEST PORTABLE on DOS: 05/29/24 FINDINGS: Lines and Tubes: None Lungs: Congestion Pleura: No effusion. No pneumothorax. Cardiomediastinal contours: Cardiomegaly Bones: Unremarkable IMPRESSION: Congestion
[2024-05-30] MEDS ORDERED: DEXTROSE (50%) 50ML SYRG IV PRN (16:30)
--- NOTE | 2024-05-30 16:32 | DVHPN2 ---
Subjective Patient reports having shortness of breath. Reviewed: Care Plan, H&P, Labs, Medications Changes from previous H/P or p: No Changes General: Per HPI Objective Vitals Vital Signs Date Time Temp Pulse Resp B/P (MAP) Pulse Ox O2 Delivery O2 Flow Rate FiO2 05/30/24 14:31 98 Bi-Pap+ 30 30 05/30/24 14:31 64 22 05/30/24 14:07 130/74 05/30/24 08:00 97.7 97.7 05/30/24 03:20 10 General Appearance: Alert, Oriented X3, Cooperative, No acute distress, Other (Morbid obesity) HEENT: Atraumatic, PERRLA Lungs: Clear to auscultation, Other (Patient currently on BiPAP. Rhonchi to left upper) Cardiovascular: Normal S1, Normal S2 Abdomen: Normal bowel sounds, Soft, No tenderness Back: Flank Tenderness, Midline Tenderness Musculoskeletal: Normal sensory function, Normal motor function Extremities: No clubbing, No cyanosis, No edema, Normal pulses, No tenderness/swelling Neuro: Normal gait, Normal speech Psych/Mental Status: Mental status NL, Mood NL Medications Current Medications Medications Dose Ordered Sig/Gissel Route Start Time Stop Time Status Last Admin Dose Admin Albuterol 2.5 mg Q6HPRN PRN NEB 05/29/24 19:45 05/30/24 14:31 2.5 MG Levothyroxine Sodium 100 mcg QAM@0600 PO 05/30/24 06:00 05/30/24 06:16 100 MCG Montelukast Sodium 10 mg HS PO 05/29/24 22:00 05/29/24 22:05 10 MG Gabapentin 400 mg TID PO 05/29/24 22:00 05/30/24 14:17 400 MG Enalapril Maleate 20 mg DAILY PO 05/30/24 10:00 05/30/24 10:30 20 MG Atenolol 50 mg DAILY PO 05/30/24 10:00 05/30/24 10:30 50 MG Ceftriaxone Sodium 50 ml @ 100 mls/hr DAILY@09 IV 05/30/24 09:00 05/30/24 09:26 100 MLS/HR Azithromycin 250 ml @ 125 mls/hr DAILY IV 05/30/24 10:00 05/30/24 10:28 125 MLS/HR Temazepam 15 mg QHSP PRN PO 05/29/24 19:45 Ondansetron HCl 4 mg Q4HP PRN IV 05/29/24 19:45 Acetaminophen 650 mg Q6HP PRN PO 05/29/24 19:45 05/29/24 21:38 650 MG Methylprednisolone Sodium Succinate 60 mg BID IV 05/30/24 10:00 05/30/24 10:29 60 MG Albuterol 2.5 mg Q6H NEB 05/30/24 00:00 05/30/24 11:13 2.5 MG Furosemide 20 mg DAILY IV 05/31/24 10:00 UNV Ipratropium [place] 0.5 mg Q6HR NEB 05/30/24 18:00 UNV Laboratory Results Laboratory Tests 05/30/24 05:40 Chemistry Test 05/30/24 05:40 Calcium Level 9.4 mg/dL (8.7-10.4) Coagulation Test 05/29/24 22:35 D-Dimer, Quantitative 0.51 mg/L FEU (0.0-0.49) H Blood Gas Results Test 05/29/24 22:33 05/30/24 11:19 Arterial Blood pH 7.418 (7.350-7.450) 7.371 (7.350-7.450) FiO2 % 55.0 40.0 Labs and/or images reviewed: Labs reviewed by me, Image(s) reviewed by me Assessment/Plan Assessment/Plan Impression: -acute hypoxic and hypercarbic respiratory failure -morbid obesity -probable obstructive sleep apnea -hypothyroidism -COPD -asthma -narcolepsy -diabetes mellitus Plan: -check TSH, cortisol level, ESR, CRP, A1c -patient alert and able to follow some commands. -regular insulin sliding scale -bronchodilators -thyroid supplementation -continue BiPAP, attempt to weaned off and use low-flow nasal cannula instead of Oxymizer given FiO2 is currently at 30% -continue current antibiotic therapy -repeat labs in am Total time spent with patient discussing and formulating plan of care: 35 minutes. This medical document was created using an electronic medical record system with [employer] system. Although this document has been carefully reviewed, there may still be some phonetic and typographical errors. These areas are purely typographical due to imperfections of the software programs, and do not reflect any compromise in the patient's medical care. Plan discussed with: Patient, Other (RN) Date of Service: May 30, 2024 Billing Provider: JOSÉ AZAR NP Common Visit Codes: [id number] INP/OBS CARE(HIGH) JOSÉ AZAR NP May 30, 2024 16:32
[2024-05-30] MEDS: InsuLIN REG 1unit/0.01ml Soln (100units/ml) SC SCH (17:00)
[2024-05-30] MEDS: ACCU-CHEK COMFORT CURVE STRIP VI SCH (17:05)
[2024-05-30 18:42] LABS: Erythrocyte Sedimentation Rate 19 mm/hr (0-20)
[2024-05-30] MEDS: IPRATROPIUM BROM 0.5 MG/2.5ML INH SOL NEB SCH (18:49)
[2024-05-30] MEDS: EPINEPHrine HCL 0.5 ML NEB NEB ONE (20:29)
--- NOTE | 2024-05-30 22:51 | DVHPN2 ---
Progress Note - Dictate Date Seen: May 30, 2024 Medical Necessity Reason Pt with a Central, PICC or Fol: No Subjective Patient seen and examined at bedside. On BiPAP Overnight events reviewed. vital signs Vital Sign Date Time Temp Pulse Resp B/P (MAP) Pulse Ox O2 Delivery O2 Flow Rate FiO2 05/30/24 22:20 62 115/73 96 Facial BiPAP Mask 30 05/30/24 20:34 22 05/30/24 08:00 97.7 97.7 05/30/24 03:20 10 medications Current Medications Medications Dose Ordered Sig/Gissel Route Start Time Stop Time Status Last Admin Dose Admin Albuterol 2.5 mg Q6HPRN PRN NEB 05/29/24 19:45 05/30/24 14:31 2.5 MG Levothyroxine Sodium 100 mcg QAM@0600 PO 05/30/24 06:00 05/30/24 06:16 100 MCG Montelukast Sodium 10 mg HS PO 05/29/24 22:00 05/30/24 22:40 10 MG Gabapentin 400 mg TID PO 05/29/24 22:00 05/30/24 22:40 400 MG Enalapril Maleate 20 mg DAILY PO 05/30/24 10:00 05/30/24 10:30 20 MG Atenolol 50 mg DAILY PO 05/30/24 10:00 05/30/24 10:30 50 MG Ceftriaxone Sodium 50 ml @ 100 mls/hr DAILY@09 IV 05/30/24 09:00 05/30/24 09:26 100 MLS/HR Azithromycin 250 ml @ 125 mls/hr DAILY IV 05/30/24 10:00 05/30/24 10:28 125 MLS/HR Temazepam 15 mg QHSP PRN PO 05/29/24 19:45 Ondansetron HCl 4 mg Q4HP PRN IV 05/29/24 19:45 Acetaminophen 650 mg Q6HP PRN PO 05/29/24 19:45 05/29/24 21:38 650 MG Methylprednisolone Sodium Succinate 60 mg BID IV 05/30/24 10:00 05/30/24 22:40 60 MG Albuterol 2.5 mg Q6H NEB 05/30/24 00:00 05/30/24 18:49 2.5 MG Furosemide 20 mg DAILY IV 05/31/24 10:00 Ipratropium [place] 0.5 mg Q6HR NEB 05/30/24 18:00 05/30/24 18:49 0.5 MG Diagnostic Test (Pha) 1 strip ACHS 05/30/24 17:00 05/30/24 22:37 1 STRIP Insulin Human Regular ACHS SC 05/30/24 17:00 Dextrose 50 ml UD PRN IV 05/30/24 16:30 objective Gen.: Patient lying in bed in no apparent distress. On BiPAP Head: Normocephalic, atraumatic. Eyes: EOMI/PERRLA. Ears: Normal hearing. Normal anatomy. Neck/trachea: Trachea midline, supple. Nose: Normal external anatomy. Mouth: Moist mucous membranes. Chest: Decreased air entry bilaterally. Upper airway wheezing. No rhonchi. Cardiovascular: Positive S1, positive S2. Regular rate and rhythm. Abdomen: Positive bowel sounds in all 4 quadrants. Soft, non-tender, non- distended. : Deferred. Rectal: Deferred. Skin: Warm, dry. Intact. Extremities: 2+ radial pulses bilaterally. No lower extremity edema. Neuro: Awake, alert, oriented x3. No gross motor or sensory deficits. Cranial nerves II through XII intact. Gait not assessed. laboratory and microbiology Laboratory Tests 05/30/24 05:40 Test 05/30/24 05:40 Range/Units Serum Glucose 166 H 74-106 mg/dL Assessment/Plan Impression: Acute hypoxic respiratory failure Asthma exacerbation Stridor Obesity hypoventilation syndrome Narcolepsy Morbid obesity Events: On BiPAP with IPAP 12, EPAP 6. Titrate FiO2 to keep O2 sats between 88-94% ABG reviewed, compensated Racemic epinephrine x1 Continue bronchodilators. IV steroids - upper airway wheezing this PM Maintain euvolemia w/ Lasix Monitor renal function Monitor ins and outs Labs and imaging reviewed. Rest of plan as noted below. Plan: On BiPAP with IPAP 12, EPAP 6. Titrate FiO2 to keep O2 sats between 88-94% Racemic epinephrine Continue bronchodilators. IV steroids Monitor renal function. Monitor electrolytes. Supplement as necessary. IV magnesium supplementation Monitor ins and outs Diet and lifestyle modifications for weight reduction Morbid obesity - complicates all care DVT prophylaxis. Prognosis: Poor given patient's multiple co-morbidities. Condition: Critical Rest of plan per hospitalist and other consultants. A total of 35 minutes of critical care time was spent reviewing the patient record, examining the patient, making a diagnostic and therapeutic plan, discussing this plan with the medical personnel, following up on diagnostic studies and following the patient for clinical stability excluding any and all procedures. At least 50% of this time was spent in direct, [id number] contact. Thank you, SOMMER Funez, for allowing me to participate in this patient's care. Further recommendations will depend on the patient's clinical course. Please do not hesitate to contact me if you have any questions or concerns. This medical document was created using an electronic medical record system with [employer] dictation system. Although these documentations are being carefully reviewed, there may still be some phonetic and typographical changes. The errors are purely typographical, due to imperfection on the software program, and do not reflect any compromise in the patient's medical care. Plan discussed with: Other (RN) Critical Care Time(min): 35 BARBARA CASTRO MD May 30, 2024 22:51
[2024-05-30 23:20] LABS: Urine Bacteria FEW /hpf (None Seen); Urine Blood Negative /uL (Negative); Urine Clarity Turbid (Clear); Urine Color Yellow (Yellow); Urine Mucus FEW (None Seen); Urine Protein, UAD TRACE (Negative); Urine Specific Gravity 1.021 (1.001-1.035); Urine Squamous Epithelial Cell FEW /hpf (<5); Urine Urobilinogen Normal (Negative); Urine WBC 140 /hpf (0 - 5); Urine pH 5.5 (5.0-9.0)
[2024-05-31] VITALS (17 sets, daily range): BP systolic 115–144; BP diastolic 61–83; PULSE 59–74; RESP 17–22; TEMP 97.8–98.5; O2SAT 94–100
[2024-05-31] MEDS: ONDANSETRON HCL 4 MG/2 ML VIAL IV PRN (00:57)
[2024-05-31] MEDS ORDERED: LEVO-848 PO (02:28)
[2024-05-31] MEDS ORDERED: FURO40TA4 PO (02:28)
[2024-05-31] MEDS ORDERED: [UNRECOGNIZED DRUG - CODE] PO (02:28)
[2024-05-31] MEDS ORDERED: LORA-1121 PO (02:28)
[2024-05-31] MEDS ORDERED: DICY20TA PO (02:28)
[2024-05-31] MEDS ORDERED: SILD20TA PO (02:28)
[2024-05-31] MEDS ORDERED: PRED10TA PO (02:28)
[2024-05-31] MEDS ORDERED: AML5T PO (02:28)
--- NOTE | 2024-05-31 08:02 | DVHSR ---
APPROVED REPORT EXAM: LIMITED Two-dimensional and M-mode echocardiogram with Doppler and color Doppler. Blood Pressure: 133/91 mmHg INDICATION chf DIMENSIONS LVDd5.2 (3.8-5.7cm)LA (2D) (1.9-4.0cm)Aortic Root3.3 (2.0-3.7cm) LVDs3.8 (2.5-4.0cm)LA (MM) (1.9-4.0cm)Aortic Cusp Exc2.0 (1.5-2.0cm) EF (%) 55.0 (55-70%)Rt. Atrium (1.9-4.0cm)Asc. Aorta cm IVSd1.0 (0.7-1.1cm)RV (D) (1.8-2.4cm) PWd1.0 (0.7-1.1cm) Mitral Valve MitralMitral Stenosis E/A ratio0.02D MVAcm2 Aortic Valve Aortic ValveAortic Stenosis LVOT Diameter2.1 (1.8-2.4cm)Doppler AVAcm2 Pulmonic Valve V21.23m/s Tricuspid Valve TR Velocity3.45m/s [id number] LEFT VENTRICLE Normal left ventricular size. Wall thickness is normal. Ejection fraction is normal and is estimate d at 55% based on visual estimate. There is no gross wall motion abnormalities but endocardial defin ition is suboptimal. Diastolic function appears to be preserved. RIGHT VENTRICLE The right ventricle is not well visualized. The right ventricle is likely dilated in size. Right ve ntricular systolic function is likely preserved. ATRIA The left atrium is of normal size. The right atrium is not well visualized. It is likely mildly dilated. The intra-atrial septum is not well visualized. MITRAL VALVE Normal in structure and function. There is trace mitral regurgitation. PULMONIC VALVE Likely normal. TRICUSPID VALVE Likely of normal structure and function. There is mild tricuspid regurgitation. PA systolic pressur e is estimated at 50-55 mm Hg. AORTIC VALVE Normal structure and function. GREAT VESSELS Aortic root and proximal ascending aorta are of normal size. PERICARDIAL EFFUSION No pericardial effusion. The IVC is not well visualized. Other Information Quality : Technically LimitedRhythm : Technically limited study due to patient position.body habitus.patient moving. Conclusion Overall, the study is technically limited because of body habitus and patient moving. Normal left ventricular size and systolic function. The right ventricle is likely mildly dilated in size with preserved systolic function. No hemodynamically significant valvular disease. Moderate pulmonary hypertension with estimated PA pressure of 50-55 mm Hg. No significant pericardial effusion.
[2024-05-31] MEDS: FUROSEMIDE 20 MG/2 ML VIAL IV SCH (11:38)
--- NOTE | 2024-05-31 12:39 | DVHPN2 ---
Subjective Patient now more alert and oriented. Reviewed: Care Plan, H&P, Labs, Medications Changes from previous H/P or p: Changes General: Per HPI Objective Vitals Vital Signs Date Time Temp Pulse Resp B/P (MAP) Pulse Ox O2 Delivery O2 Flow Rate FiO2 05/31/24 11:56 70 18 100 05/31/24 11:50 Nasal Cannula 4.0 05/31/24 11:50 36 05/31/24 11:38 122/80 05/31/24 08:50 98.4 98.4 Intake/Output Intake and Output 05/31/24 07:00 Intake Total 530 ml Balance 530 ml Intake Oral 230 ml IV Total 300 ml # Voids 1 General Appearance: Alert, Oriented X3, Cooperative, No acute distress, Other (Morbid obesity) HEENT: Atraumatic, PERRLA Lungs: Clear to auscultation, Other (Patient currently on BiPAP. Rhonchi to left upper) Cardiovascular: Normal S1, Normal S2 Abdomen: Normal bowel sounds, Soft, No tenderness Back: Flank Tenderness, Midline Tenderness Musculoskeletal: Normal sensory function, Normal motor function Extremities: No clubbing, No cyanosis, No edema, Normal pulses, No tenderness/swelling Neuro: Normal gait, Normal speech Psych/Mental Status: Mental status NL, Mood NL Medications Current Medications Medications Dose Ordered Sig/Gissel Route Start Time Stop Time Status Last Admin Dose Admin Albuterol 2.5 mg Q6HPRN PRN NEB 05/29/24 19:45 05/30/24 14:31 2.5 MG Levothyroxine Sodium 100 mcg QAM@0600 PO 05/30/24 06:00 05/31/24 05:52 100 MCG Montelukast Sodium 10 mg HS PO 05/29/24 22:00 05/30/24 22:40 10 MG Gabapentin 400 mg TID PO 05/29/24 22:00 05/31/24 05:53 400 MG Enalapril Maleate 20 mg DAILY PO 05/30/24 10:00 05/31/24 09:39 20 MG Atenolol 50 mg DAILY PO 05/30/24 10:00 05/31/24 09:39 50 MG Ceftriaxone Sodium 50 ml @ 100 mls/hr DAILY@09 IV 05/30/24 09:00 05/31/24 08:26 100 MLS/HR Azithromycin 250 ml @ 125 mls/hr DAILY IV 05/30/24 10:00 05/31/24 11:37 125 MLS/HR Temazepam 15 mg QHSP PRN PO 05/29/24 19:45 Ondansetron HCl 4 mg Q4HP PRN IV 05/29/24 19:45 05/31/24 00:57 4 MG Acetaminophen 650 mg Q6HP PRN PO 05/29/24 19:45 05/29/24 21:38 650 MG Methylprednisolone Sodium Succinate 60 mg BID IV 05/30/24 10:00 05/31/24 09:40 60 MG Albuterol 2.5 mg Q6H NEB 05/30/24 00:00 05/31/24 11:48 2.5 MG Furosemide 20 mg DAILY IV 05/31/24 10:00 05/31/24 11:38 20 MG Ipratropium [place] 0.5 mg Q6HR NEB 05/30/24 18:00 05/31/24 11:48 0.5 MG Diagnostic Test (Pha) 1 strip ACHS 05/30/24 17:00 05/31/24 11:39 1 STRIP Insulin Human Regular ACHS SC 05/30/24 17:00 05/31/24 06:03 3 UNITS Dextrose 50 ml UD PRN IV 05/30/24 16:30 Laboratory Results Laboratory Tests 05/30/24 05:40 HgA1c, TSH Test 05/30/24 17:00 Hemoglobin A1c 6.4 % A1C (<5.7) H Urinalysis Test 05/30/24 23:00 Urine Color Yellow (Yellow) Urine Clarity Turbid (Clear) H Urine pH 5.5 (5.0-9.0) Urine Specific [place] 1.021 (1.001-1.035) Urine Protein Trace (Negative) H Urine Ketones Negative (Negative) Urine Blood Negative /uL (Negative) Urine Nitrite Negative (Negative) Urine Bilirubin Negative (Negative) Urine Urobilinogen Normal mg/dL (Negative) Urine Leukocyte Esterase 3+ /uL (Negative) Urine RBC 5 /hpf (0 - 4) Urine WBC 140 /hpf (0 - 5) Urine Squamous Epithelial Cells Few /hpf (<5) Urine Bacteria Few /hpf (None Seen) H Urine Mucus Few (None Seen) Urine Glucose Normal mg/dL (Normal) Labs and/or images reviewed: Labs reviewed by me, Image(s) reviewed by me Assessment/Plan Assessment/Plan Impression: -acute hypoxic and hypercarbic respiratory failure -morbid obesity -probable obstructive sleep apnea -hypothyroidism -COPD -asthma -narcolepsy -diabetes mellitus -toxic metabolic encephalopathy Plan: Events: Patient now alert and oriented x4. Patient no longer lethargic. Off BiPAP on nasal cannula. Patient states that she has no symptoms at this time. She also reports that she does not want to go back on hospice and does not know why she was on hospice. Diagnostic workup so far negative. -stop antibiotic therapy -check TSH, cortisol level, ESR, CRP, A1c -regular insulin sliding scale -bronchodilators -thyroid supplementation BiPAP p.r.n. -social service consultation for discharge planning. Patient is requesting home health services instead of hospice. Total time spent with patient discussing and formulating plan of care: 35 minutes. This medical document was created using an electronic medical record system with [employer] dictation system. Although this document has been carefully reviewed, there may still be some phonetic and typographical errors. These areas are purely typographical due to imperfections of the software programs, and do not reflect any compromise in the patient's medical care. Plan discussed with: Patient, Other (RN) My Orders Orders - JOSÉ AZAR NP Procedure Category Date Status Time Cortisol Pm LAB 05/30/24 Logged 16:24 Glucose Blood PHA 05/30/24 In Process (Accu-Chek Comfort 17:00 Insulin R (Human) PHA 05/30/24 In Process (Insulin R) 17:00 Dextrose 50% Syringe PHA 05/30/24 In Process 16:30 Transfer Orders XFER 05/30/24 Transmitted 16:32 Methylprednisolone PHA 05/31/24 Verified Sod Succ (Solu Medrol 22:00 Abg W/ Co-Ox RT 05/31/24 Verified 12:33 Drug Screen LAB 05/31/24 Verified 12:33 Pt Request For Service PT 05/31/24 Verified 12:33 Date of Service: May 31, 2024 Billing Provider: JOSÉ AZAR NP Common Visit Codes: [id number] INP/OBS CARE(HIGH) JOSÉ AZAR NP May 31, 2024 12:39
[2024-05-31 14:23] LABS: Base Excess 1.2 mmol/L (-2.0-3.0)
--- NOTE | 2024-05-31 22:38 | DVHPN2 ---
Progress Note - Dictate Date Seen: May 31, 2024 Medical Necessity Reason Pt with a Central, PICC or Fol: No Subjective Patient seen and examined at bedside. On supplemental oxygen Overnight events reviewed. vital signs Vital Sign Date Time Temp Pulse Resp B/P (MAP) Pulse Ox O2 Delivery O2 Flow Rate FiO2 05/31/24 21:00 97.8 69 17 139/83 (101) 97 97.8 05/31/24 18:14 Nasal Cannula* 4 36 Total Intake and Output 05/30/24 05/30/24 05/31/24 15:00 23:00 07:00 Intake Total 300 ml 230 ml Balance 300 ml 230 ml medications Current Medications Medications Dose Ordered Sig/Gissel Route Start Time Stop Time Status Last Admin Dose Admin Albuterol 2.5 mg Q6HPRN PRN NEB 05/29/24 19:45 05/30/24 14:31 2.5 MG Levothyroxine Sodium 100 mcg QAM@0600 PO 05/30/24 06:00 05/31/24 05:52 100 MCG Montelukast Sodium 10 mg HS PO 05/29/24 22:00 05/30/24 22:40 10 MG Gabapentin 400 mg TID PO 05/29/24 22:00 05/31/24 12:57 400 MG Enalapril Maleate 20 mg DAILY PO 05/30/24 10:00 05/31/24 09:39 20 MG Atenolol 50 mg DAILY PO 05/30/24 10:00 05/31/24 09:39 50 MG Temazepam 15 mg QHSP PRN PO 05/29/24 19:45 Ondansetron HCl 4 mg Q4HP PRN IV 05/29/24 19:45 05/31/24 00:57 4 MG Acetaminophen 650 mg Q6HP PRN PO 05/29/24 19:45 05/29/24 21:38 650 MG Albuterol 2.5 mg Q6H NEB 05/30/24 00:00 05/31/24 18:14 2.5 MG Ipratropium [place] 0.5 mg Q6HR NEB 05/30/24 18:00 05/31/24 18:14 0.5 MG Diagnostic Test (Pha) 1 strip ACHS 05/30/24 17:00 05/31/24 21:49 1 STRIP Insulin Human Regular ACHS SC 05/30/24 17:00 05/31/24 21:50 2 UNITS Dextrose 50 ml UD PRN IV 05/30/24 16:30 Methylprednisolone Sodium Succinate 40 mg BID IV 05/31/24 22:00 objective Gen.: Patient lying in bed in no apparent distress. On supplemental oxygen Head: Normocephalic, atraumatic. Eyes: EOMI/PERRLA. Ears: Normal hearing. Normal anatomy. Neck/trachea: Trachea midline, supple. Nose: Normal external anatomy. Mouth: Moist mucous membranes. Chest: Decreased air entry bilaterally. Upper airway wheezing. No rhonchi. Cardiovascular: Positive S1, positive S2. Regular rate and rhythm. Abdomen: Positive bowel sounds in all 4 quadrants. Soft, non-tender, non- distended. : Deferred. Rectal: Deferred. Skin: Warm, dry. Intact. Extremities: 2+ radial pulses bilaterally. No lower extremity edema. Neuro: Awake, alert, oriented x3. No gross motor or sensory deficits. Cranial nerves II through XII intact. Gait not assessed. laboratory and microbiology Laboratory Tests 05/30/24 05:40 Test 05/30/24 05:40 Range/Units Serum Glucose 166 H 74-106 mg/dL Assessment/Plan Impression: Acute hypoxic respiratory failure Asthma exacerbation Stridor Obesity hypoventilation syndrome Narcolepsy Morbid obesity Events: Currently on supplemental oxygen, 4 LPM NC Taper O2 as tolerated BiPAP PRN Titrate to keep O2 sats between 88-94% Racemic epinephrine PRN Continue bronchodilators. IV steroids - upper airway wheezing improving Continue antibiotics Maintain euvolemia w/ Lasix Monitor renal function Monitor ins and outs Labs and imaging reviewed. Rest of plan as noted below. Plan: Supplemental oxygen BiPAP PRN Titrate to keep O2 sats between 88-94% Racemic epinephrine PRN Continue bronchodilators. IV steroids Monitor renal function. Monitor electrolytes. Supplement as necessary. IV magnesium supplementation Monitor ins and outs Diet and lifestyle modifications for weight reduction Morbid obesity - complicates all care DVT prophylaxis. Prognosis: Poor given patient's multiple co-morbidities. Rest of plan per hospitalist and other consultants. Thank you, SOMMER Funez, for allowing me to participate in this patient's care. Further recommendations will depend on the patient's clinical course. Please do not hesitate to contact me if you have any questions or concerns. This medical document was created using an electronic medical record system with [employer] computerized dictation system. Although these documentations are being carefully reviewed, there may still be some phonetic and typographical changes. The errors are purely typographical, due to imperfection on the software program, and do not reflect any compromise in the patient's medical care. Plan discussed with: Patient, Other (BELLE Awan) BARBARA CASTRO MD May 31, 2024 22:38
[2024-05-31] MEDS: methylPREDNISolone SOD SUCC 40 MG/ML VL IV SCH (22:54)
[2024-06-01] VITALS (23 sets, daily range): BP systolic 120–153; BP diastolic 63–89; PULSE 55–100; RESP 15–67; TEMP 97.8–98.7; O2SAT 92–100
[2024-06-01] MEDS: SILDENAFIL CITRATE 20 MG TAB PO SCH (12:59)
--- NOTE | 2024-06-01 13:21 | DVHPN2 ---
Subjective Patient now more alert and oriented. Reviewed: Care Plan, H&P, Labs, Medications Changes from previous H/P or p: No Changes General: Per HPI Objective Vitals Vital Signs Date Time Temp Pulse Resp B/P (MAP) Pulse Ox O2 Delivery O2 Flow Rate FiO2 06/01/24 12:40 67 06/01/24 11:24 15 99 06/01/24 11:16 Nasal Cannula 4.0 06/01/24 11:16 36 06/01/24 09:29 116/62 06/01/24 09:00 98.7 98.7 Intake/Output Intake and Output 06/01/24 07:00 Intake Total 2300 ml Balance 2300 ml Intake Oral 2000 ml IV Total 300 ml # Voids 8 # Bowel Movements 3 General Appearance: Alert, Oriented X3, Cooperative, No acute distress, Other (Morbid obesity) HEENT: Atraumatic, PERRLA Lungs: Clear to auscultation, Other (Patient currently on BiPAP. Rhonchi to left upper) Cardiovascular: Normal S1, Normal S2 Abdomen: Normal bowel sounds, Soft, No tenderness Back: Flank Tenderness, Midline Tenderness Musculoskeletal: Normal sensory function, Normal motor function Extremities: No clubbing, No cyanosis, No edema, Normal pulses, No tenderness/swelling Neuro: Normal gait, Normal speech Psych/Mental Status: Mental status NL, Mood NL Medications Current Medications Medications Dose Ordered Sig/Gissel Route Start Time Stop Time Status Last Admin Dose Admin Albuterol 2.5 mg Q6HPRN PRN NEB 05/29/24 19:45 06/01/24 02:11 2.5 MG Levothyroxine Sodium 100 mcg QAM@0600 PO 05/30/24 06:00 06/01/24 06:10 100 MCG Montelukast Sodium 10 mg HS PO 05/29/24 22:00 05/31/24 22:55 10 MG Gabapentin 400 mg TID PO 05/29/24 22:00 06/01/24 12:59 400 MG Enalapril Maleate 20 mg DAILY PO 05/30/24 10:00 06/01/24 09:29 20 MG Atenolol 50 mg DAILY PO 05/30/24 10:00 06/01/24 09:28 50 MG Temazepam 15 mg QHSP PRN PO 05/29/24 19:45 Ondansetron HCl 4 mg Q4HP PRN IV 05/29/24 19:45 05/31/24 00:57 4 MG Acetaminophen 650 mg Q6HP PRN PO 05/29/24 19:45 05/29/24 21:38 650 MG Albuterol 2.5 mg Q6H NEB 05/30/24 00:00 06/01/24 11:16 2.5 MG Ipratropium [place] 0.5 mg Q6HR NEB 05/30/24 18:00 06/01/24 11:16 0.5 MG Diagnostic Test (Pha) 1 strip ACHS 05/30/24 17:00 06/01/24 12:12 1 STRIP Insulin Human Regular ACHS SC 05/30/24 17:00 05/31/24 21:50 2 UNITS Dextrose 50 ml UD PRN IV 05/30/24 16:30 Methylprednisolone Sodium Succinate 40 mg BID IV 05/31/24 22:00 06/01/24 09:26 40 MG Sildenafil Citrate 20 mg TID@08,14,20 PO 06/01/24 14:00 06/01/24 12:59 20 MG Ceftriaxone Sodium 50 ml @ 100 mls/hr DAILY@09 IV 06/01/24 20:00 Laboratory Results Laboratory Tests 05/30/24 05:40 Urinalysis Test 05/30/24 23:00 Urine Color Yellow (Yellow) Urine Clarity Turbid (Clear) H Urine pH 5.5 (5.0-9.0) Urine Specific [place] 1.021 (1.001-1.035) Urine Protein Trace (Negative) H Urine Ketones Negative (Negative) Urine Blood Negative /uL (Negative) Urine Nitrite Negative (Negative) Urine Bilirubin Negative (Negative) Urine Urobilinogen Normal mg/dL (Negative) Urine Leukocyte Esterase 3+ /uL (Negative) Urine RBC 5 /hpf (0 - 4) Urine WBC 140 /hpf (0 - 5) Urine Squamous Epithelial Cells Few /hpf (<5) Urine Bacteria Few /hpf (None Seen) H Urine Mucus Few (None Seen) Urine Glucose Normal mg/dL (Normal) Blood Gas Results Test 05/31/24 13:51 Arterial Blood pH 7.395 (7.350-7.450) FiO2 % 21.0 Labs and/or images reviewed: Labs reviewed by me, Image(s) reviewed by me Assessment/Plan Assessment/Plan Impression: -acute hypoxic and hypercarbic respiratory failure -morbid obesity -probable obstructive sleep apnea -hypothyroidism -COPD -asthma -narcolepsy -diabetes mellitus -toxic metabolic encephalopathy Plan: Events: Ambulated patient met approximately 40 ft on room air. Noted subjective dyspnea with oxygen saturation dropping to 87%. Patient was placed on 2 L nasal cannula. Given echocardiogram results, restart sildenafil 20 mg p.o. t.i.d.. Awaiting for case management director to speak with the patient regarding home health services and establishment of PCP. -stop antibiotic therapy -start sildenafil -regular insulin sliding scale -bronchodilators, Pulmicort -continue IV Solu-Medrol -thyroid supplementation BiPAP p.r.n. -social service consultation for discharge planning. Patient is requesting home health services instead of hospice. Total time spent with patient discussing and formulating plan of care: 35 minutes. This medical document was created using an electronic medical record system with [employer] dictation system. Although this document has been carefully reviewed, there may still be some phonetic and typographical errors. These areas are purely typographical due to imperfections of the software programs, and do not reflect any compromise in the patient's medical care. Plan discussed with: Patient, Other (RN) My Orders Orders - JOSÉ AZAR NP Procedure Category Date Status Time Sildenafil Citrate PHA 06/01/24 In Process (Revatio) 14:00 Ceftriaxone 1gm/50ml PHA 06/01/24 In Process D5w (Rocephin) 20:00 Abg W/ Co-Ox RT 06/01/24 Logged 13:11 Date of Service: Jun 01, 2024 Billing Provider: JOSÉ AZAR NP Common Visit Codes: [id number] INP/OBS CARE(HIGH) JOSÉ AZAR NP Jun 01, 2024 13:20
[2024-06-01 15:08] LABS: Base Excess 4.2 mmol/L (-2.0-3.0)
[2024-06-01] MEDS ORDERED: cefTRIAXone 1GM/50ML D5W 50 ML IV SCH (20:00)
[2024-06-01] MEDS: cefTRIAXone 1GM/50ML D5W 50 ML IV SCH (20:51)
[2024-06-01] MEDS: TEMAZEPAM 15 MG CAP PO PRN (21:17)
--- NOTE | 2024-06-01 23:32 | DVHPN2 ---
Progress Note - Dictate Date Seen: Jun 01, 2024 Medical Necessity Reason Pt with a Central, PICC or Fol: No Subjective Patient seen and examined at bedside. On supplemental oxygen Overnight events reviewed. vital signs Vital Sign Date Time Temp Pulse Resp B/P (MAP) Pulse Ox O2 Delivery O2 Flow Rate FiO2 06/01/24 22:05 98.0 73 19 153/63 (93) 94 98.0 06/01/24 19:39 Nasal Cannula* 4 36 Total Intake and Output 05/31/24 05/31/24 06/01/24 15:00 23:00 07:00 Intake Total 50 ml 1750 ml 500 ml Balance 50 ml 1750 ml 500 ml medications Current Medications Medications Dose Ordered Sig/Gissel Route Start Time Stop Time Status Last Admin Dose Admin Albuterol 2.5 mg Q6HPRN PRN NEB 05/29/24 19:45 06/01/24 02:11 2.5 MG Levothyroxine Sodium 100 mcg QAM@0600 PO 05/30/24 06:00 06/01/24 06:10 100 MCG Montelukast Sodium 10 mg HS PO 05/29/24 22:00 06/01/24 20:55 10 MG Gabapentin 400 mg TID PO 05/29/24 22:00 06/01/24 20:55 400 MG Enalapril Maleate 20 mg DAILY PO 05/30/24 10:00 06/01/24 09:29 20 MG Atenolol 50 mg DAILY PO 05/30/24 10:00 06/01/24 09:28 50 MG Temazepam 15 mg QHSP PRN PO 05/29/24 19:45 06/01/24 21:17 15 MG Ondansetron HCl 4 mg Q4HP PRN IV 05/29/24 19:45 05/31/24 00:57 4 MG Acetaminophen 650 mg Q6HP PRN PO 05/29/24 19:45 05/29/24 21:38 650 MG Albuterol 2.5 mg Q6H NEB 05/30/24 00:00 06/01/24 19:39 2.5 MG Ipratropium [place] 0.5 mg Q6HR NEB 05/30/24 18:00 06/01/24 19:39 0.5 MG Diagnostic Test (Pha) 1 strip ACHS 05/30/24 17:00 06/01/24 20:55 1 STRIP Insulin Human Regular ACHS SC 05/30/24 17:00 05/31/24 21:50 2 UNITS Dextrose 50 ml UD PRN IV 05/30/24 16:30 Methylprednisolone Sodium Succinate 40 mg BID IV 05/31/24 22:00 06/01/24 20:54 40 MG Sildenafil Citrate 20 mg TID@08,14,20 PO 06/01/24 14:00 06/01/24 20:55 20 MG Ceftriaxone Sodium 50 ml @ 100 mls/hr DAILY@2000 IV 06/01/24 20:00 06/01/24 21:17 100 MLS/HR objective Gen.: Patient lying in bed in no apparent distress. On supplemental oxygen Head: Normocephalic, atraumatic. Eyes: EOMI/PERRLA. Ears: Normal hearing. Normal anatomy. Neck/trachea: Trachea midline, supple. Nose: Normal external anatomy. Mouth: Moist mucous membranes. Chest: Decreased air entry bilaterally. Upper airway wheezing. No rhonchi. Cardiovascular: Positive S1, positive S2. Regular rate and rhythm. Abdomen: Positive bowel sounds in all 4 quadrants. Soft, non-tender, non- distended. : Deferred. Rectal: Deferred. Skin: Warm, dry. Intact. Extremities: 2+ radial pulses bilaterally. No lower extremity edema. Neuro: Awake, alert, oriented x3. No gross motor or sensory deficits. Cranial nerves II through XII intact. Gait not assessed. laboratory and microbiology Laboratory Tests 05/30/24 05:40 Test 05/30/24 05:40 Range/Units Serum Glucose 166 H 74-106 mg/dL Assessment/Plan Impression: Acute hypoxic respiratory failure Asthma exacerbation Stridor Obesity hypoventilation syndrome Narcolepsy Morbid obesity Events: Currently on supplemental oxygen, 4 LPM NC Taper O2 as tolerated BiPAP PRN Titrate to keep O2 sats between 88-94% ABG reviewed, hypoxemia Arrange for home oxygen Racemic epinephrine PRN Continue bronchodilators. IV steroids - upper airway wheezing improving Continue antibiotics Revatio TID Labs and imaging reviewed. Rest of plan as noted below. Plan: Supplemental oxygen BiPAP PRN Titrate to keep O2 sats between 88-94% Racemic epinephrine PRN Continue bronchodilators. IV steroids Monitor renal function. Monitor electrolytes. Supplement as necessary. Monitor ins and outs Diet and lifestyle modifications for weight reduction Morbid obesity - complicates all care DVT prophylaxis. Prognosis: Poor given patient's multiple co-morbidities. Rest of plan per hospitalist and other consultants. Thank you, SOMMER Funez, for allowing me to participate in this patient's care. Further recommendations will depend on the patient's clinical course. Please do not hesitate to contact me if you have any questions or concerns. This medical document was created using an electronic medical record system with [employer] dictation system. Although these documentations are being carefully reviewed, there may still be some phonetic and typographical changes. The errors are purely typographical, due to imperfection on the software program, and do not reflect any compromise in the patient's medical care. Plan discussed with: Patient, Other (BELLE Dai) BARBARA CASTRO MD Jun 01, 2024 23:32
[2024-06-02] VITALS (9 sets, daily range): BP systolic 122–155; BP diastolic 72–92; PULSE 62–77; RESP 18–20; TEMP 97–98.2; O2SAT 94–99
--- NOTE | 2024-06-02 14:22 | DVHDS2 ---
Discharge Summary Date of Admission May 29, 2024 at 19:33 Date of Discharge: Jun 02, 2024 Admitting Diagnosis Community-acquired pneumonia Labs/Diagnostic Data: Laboratory Results Test 06/02/24 11:22 06/01/24 15:02 05/31/24 16:09 05/30/24 23:00 POC Glucose 131 mg/dl (70-106) Blood Gas Specimen Type Arterial Blood Gas Sample Site Left radial Blood Gas Patient Temperature 37.0 Arterial Blood Date Drawn [id number] Arterial Blood pH 7.439 (7.350-7.450) Arterial Blood Partial Pressure CO2 43.8 mmHg (32.0-45.0) Arterial Blood Partial Pressure O2 52.3 mmHg (83.0-108.0) Arterial Blood HCO3 29.0 mmol/L (21.0-28.0) Arterial Blood Oxygen Saturation 87.2 % (94.0-98.0) Arterial Blood Base Excess 4.2 mmol/L (-2.0-3.0) Arterial Blood Oxyhemoglobin 86.1 % (94.0-98.0) Arterial Blood Carboxyhemoglobin 1.0 % (0.5-1.5) Arterial Blood Methemoglobin 0.3 % (0.0-1.5) Dereje Test Yes Blood Gas Total Hemoglobin 16.20 g/dL (12.0-16.0) Blood Gas Modality Room air FiO2 % 21.0 Blood Gas Critical Value Read Back Yes Blood Gas Notified Whom kirstin Azar np Blood Gas Notified Time [id number] Blood Gas Notified By Cover Operator courtney garcia Cortisol PM Sample 6.70 ug/dL (3.44-16.76) Urine Color Yellow (Yellow) Urine Clarity Turbid (Clear) Urine pH 5.5 (5.0-9.0) Urine Specific [place] 1.021 (1.001-1.035) Urine Protein Trace (Negative) Urine Ketones Negative (Negative) Urine Blood Negative /uL (Negative) Urine Nitrite Negative (Negative) Urine Bilirubin Negative (Negative) Urine Urobilinogen Normal mg/dL (Negative) Urine Leukocyte Esterase 3+ /uL (Negative) Urine RBC 5 /hpf (0 - 4) Urine WBC 140 /hpf (0 - 5) Urine Squamous Epithelial Cells Few /hpf (<5) Urine Bacteria Few /hpf (None Seen) Urine Mucus Few (None Seen) Urine Glucose Normal mg/dL (Normal) Test 05/30/24 17:00 05/30/24 11:19 05/30/24 05:40 05/29/24 22:35 Hemoglobin A1c 6.4 % A1C (<5.7) Blood Gas Spontaneous Rate 22 Blood Gas Spontaneous Tidal Volume 446 Blood Gas EPAP 5 Blood Gas IPAP 12 White Blood Count 5.7 10^3/uL (4.4-10.8) Red Blood Count 5.35 10^6/uL (4.0-5.20) Hemoglobin 14.8 g/dL (12.2-16.2) Hematocrit 44.9 % (36.0-46.0) Mean Corpuscular Volume 84.0 fL (80.0-100.0) Mean Corpuscular Hemoglobin 27.7 pg (28.0-32.0) Mean Corpuscular Hemoglobin Concent 33.0 g/dL (32.0-36.0) Red Cell Distribution Width 15.5 % (11.8-14.3) Platelet Count 221 10^3/uL (140-450) Mean Platelet Volume 8.8 fL (6.9-10.8) Neutrophils (%) (Auto) 92.7 % (37.0-80.0) Lymphocytes (%) (Auto) 5.1 % (10.0-50.0) Monocytes (%) (Auto) 1.6 % (0.0-12.0) Eosinophils (%) (Auto) 0.1 % (0.0-7.0) Basophils (%) (Auto) 0.5 % (0.0-2.0) Neutrophils # (Auto) 5.2 10 ^3/uL (1.6-8.6) Lymphocytes # (Auto) 0.3 10 ^3/uL (0.4-5.4) Monocytes # (Auto) 0.1 10 ^3/uL (0-1.3) Eosinophils # (Auto) 0 10 ^3/uL (0-0.8) Basophils # (Auto) 0 10 ^3/uL (0-0.2) Nucleated Red Blood Cells 0.0 % Erythrocyte Sedimentation Rate 19 mm/hr (0-20) Sodium Level 136 mmol/L (136-145) Potassium Level 4.8 mmol/L (3.5-5.1) Chloride Level 100 mmol/L (98-107) Carbon Dioxide Level 26 mmol/L (20-31) Anion Gap 10 (5-15) Blood Urea Nitrogen 11 mg/dL (9-23) Creatinine 0.78 mg/dL (0.550-1.02) Glomerular Filtration Rate Calc 92 mL/min (>90) BUN/Creatinine Ratio 14.1 (10.0-20.0) Serum Glucose 166 mg/dL (74-106) Calcium Level 9.4 mg/dL (8.7-10.4) C-Reactive Protein High Sensitivity 5.05 mg/dL (<1.0) Thyroid Stimulating Hormone (TSH) 1.29 uIU/mL (0.55-4.78) D-Dimer, Quantitative 0.51 mg/L FEU (0.0-0.49) Test 05/29/24 22:33 05/29/24 20:05 05/29/24 17:48 05/29/24 16:15 Blood Gas Liter Flow 10.00 Influenza Type A Antigen Negative (Negative) Influenza Type B Antigen Negative (Negative) SARS-CoV-2 Antigen (Rapid) Negative (NEGATIVE) Troponin I High Sensitivity < 3 ng/L (</=34) Lactic Acid Level 1.3 mmol/L (0.4-2.0) Magnesium Level 1.9 mg/dL (1.6-2.6) Total Bilirubin 0.2 mg/dL (0.2-1.0) Aspartate Amino Transferase (AST) 23 U/L (13-40) Alanine Aminotransferase (ALT) 25 U/L (7-40) Alkaline Phosphatase 103 U/L (46-116) B-Type Natriuretic Peptide 16.78 pg/mL (0-100) Total Protein 6.6 g/dL (5.7-8.2) Albumin 4.1 g/dL (3.2-4.8) Other Laboratory Tests 05/30/24 05:40 Brief Hx & Hospital Course: History of Present Illness 49-year-old female with a history of COPD and congestive heart failure presents for evaluation of shortness for breath. Patient presents with a two day history worsening shortness for breath with associated nonproductive cough and chills. Currently denies chest pain. No palpitations. No other acute complaints reported. Consults/Reason for consult Pulmonology: Acute respiratory failure Condition at Discharge: Poor Final Diagnosis/Problems List Acute hypoxic and hypercarbic respiratory failure Secondary Diagnosis: -morbid obesity -probable obstructive sleep apnea -hypothyroidism -COPD -asthma -narcolepsy -diabetes mellitus -toxic metabolic encephalopathy Discharge Disposition: Hospice - Home Discharge Instruct/Medications Diet: Regular Activity: No Restrictions, As Tolerated Medications: Per hospice provider 36 Discharge Statement: "Patient was advised to return to the ER or call 911 if any headaches, dizziness, shortness of breath, chest pain, abdominal pain, bleeding, fevers, or worsening of medical condition. Patient was counseled about treatment plan, medications, possible side effects, patientverbalized understanding. All questions were answered to the best of my ability. This discharge took greater then 30 minutes in planning, reviewing documentation, counseling the patient, and discussing with other team members." ASSESSMENT ASSESSMENT Assessment Acute hypoxic and hypercarbic respiratory failure Date of Service: Jun 02, 2024 Billing Provider: JOSÉ AZAR NP Common Visit Codes: 53571-DMI/OBS DISCH DAY >30min JOSÉ AZAR NP Jun 02, 2024 14:22
--- NOTE | 2024-06-02 18:33 | DVHPN2 ---
Progress Note - Dictate Date Seen: Jun 02, 2024 Medical Necessity Reason Pt with a Central, PICC or Fol: No Subjective Patient seen and examined at bedside. On supplemental oxygen Overnight events reviewed. vital signs Vital Sign Date Time Temp Pulse Resp B/P (MAP) Pulse Ox O2 Delivery O2 Flow Rate FiO2 06/02/24 15:07 97.5 64 18 95 06/02/24 13:00 122/78 (93) 06/02/24 11:28 Nasal Cannula* 4 36 Total Intake and Output 06/01/24 06/01/24 06/02/24 15:00 23:00 07:00 Intake Total 474 ml 924 ml 350 ml Output Total 525 ml Balance 474 ml 399 ml 350 ml objective Gen.: Patient lying in bed in no apparent distress. On supplemental oxygen Head: Normocephalic, atraumatic. Eyes: EOMI/PERRLA. Ears: Normal hearing. Normal anatomy. Neck/trachea: Trachea midline, supple. Nose: Normal external anatomy. Mouth: Moist mucous membranes. Chest: Decreased air entry bilaterally. Upper airway wheezing. No rhonchi. Cardiovascular: Positive S1, positive S2. Regular rate and rhythm. Abdomen: Positive bowel sounds in all 4 quadrants. Soft, non-tender, non- distended. : Deferred. Rectal: Deferred. Skin: Warm, dry. Intact. Extremities: 2+ radial pulses bilaterally. No lower extremity edema. Neuro: Awake, alert, oriented x3. No gross motor or sensory deficits. Cranial nerves II through XII intact. Gait not assessed. laboratory and microbiology Laboratory Tests 05/30/24 05:40 Test 05/30/24 05:40 Range/Units Serum Glucose 166 H 74-106 mg/dL Assessment/Plan Impression: Acute hypoxic respiratory failure Asthma exacerbation Stridor Obesity hypoventilation syndrome Narcolepsy Morbid obesity Events: Currently on supplemental oxygen, 3 LPM NC Taper O2 as tolerated BiPAP PRN Titrate to keep O2 sats between 88-94% Arrange for home oxygen Racemic epinephrine PRN Continue bronchodilators. IV steroids - upper airway wheezing improving Revatio TID Recommend outpatient sleep study - pt has risk factors for sleep apnea. Labs and imaging reviewed. Rest of plan as noted below. Plan: Supplemental oxygen BiPAP PRN Titrate to keep O2 sats between 88-94% Racemic epinephrine PRN Continue bronchodilators. IV steroids Monitor renal function. Monitor electrolytes. Supplement as necessary. Monitor ins and outs Diet and lifestyle modifications for weight reduction Morbid obesity - complicates all care DVT prophylaxis. Prognosis: Poor given patient's multiple co-morbidities. Rest of plan per hospitalist and other consultants. Thank you, SOMMER Funez, for allowing me to participate in this patient's care. Further recommendations will depend on the patient's clinical course. Please do not hesitate to contact me if you have any questions or concerns. This medical document was created using an electronic medical record system with [employer] dictation system. Although these documentations are being carefully reviewed, there may still be some phonetic and typographical changes. The errors are purely typographical, due to imperfection on the software program, and do not reflect any compromise in the patient's medical care. Plan discussed with: Patient, Other (BELLE Wagner) BARBARA CASTRO MD Jun 02, 2024 18:33
== END 2024-06-02 17:55 | disposition hospice, home (50) | DRG 133 ==
LOC: EDBD 15:07 → EDSEX 15:07 → ER 15:07 → OVERFLOW 19:33 → EAST 05-31 01:52 → TELE-EAST 05-31 02:08
PROVIDERS: ADMIT Nurse Practitioner Acute Care; ATTEND Nurse Practitioner Acute Care
PROC: 5A09357 Assistance with Respiratory Ventilation, Less than 24 Consecutive Hours, Continuous Positive Airway Pressure (ICD-10-PCS; principal; 2024-05-30)
PROC: 5A09357 Assistance with Respiratory Ventilation, Less than 24 Consecutive Hours, Continuous Positive Airway Pressure (ICD-10-PCS; 2024-05-31)
PROC: 5A09357 Assistance with Respiratory Ventilation, Less than 24 Consecutive Hours, Continuous Positive Airway Pressure (ICD-10-PCS; 2024-06-01)
DX: J96.02 Acute respiratory failure with hypercapnia (principal); G92.8 Other toxic encephalopathy; J18.9 Pneumonia, unspecified organism; J44.0 Chronic obstructive pulmonary disease with (acute) lower respiratory infection; I11.0 Hypertensive heart disease with heart failure; E66.2 Morbid (severe) obesity with alveolar hypoventilation; J45.901 Unspecified asthma with (acute) exacerbation; Z51.5 Encounter for palliative care; J96.01 Acute respiratory failure with hypoxia; E11.9 Type 2 diabetes mellitus without complications; F17.210 Nicotine dependence, cigarettes, uncomplicated; G47.419 Narcolepsy without cataplexy; Z82.3 Family history of stroke; Z83.3 Family history of diabetes mellitus; Z88.1 Allergy status to other antibiotic agents; Z90.710 Acquired absence of both cervix and uterus; Z79.899 Other long term (current) drug therapy; Z79.4 Long term (current) use of insulin; Z68.29 Body mass index [BMI] 29.0-29.9, adult
CPT/HCPCS: 36415; 36600; 71045; 80048; 80053; 81001; 82533; 82805; 82962; 83036; 83605; 83735; 83880; 84443; 84484; 85025; 85379; 85652; 86141; 87426; 87804; 93005; 93306; 94640; 94660; 96365; 96375; G0378; J1815; J2405

== ENCOUNTER 2024-09-18 01:41 | Inpatient (IN) | payer OTHER, MEDICAID ==
[~2024-09-18 01:41] MED LIST changes: +AML5T PO; -BUPR300T30 PO; +DICY20TA PO; -ENAL1TAB48 PO; +FURO40TA4 PO; -IBUP-1456 PO; +LEVO-848 PO; -LEVO100T8 PO; +LORA-1121 PO; -LORA10TA6 PO; -MECL-90 PO; -MULT50TA14 PO; -ONDA-143 PO; +PRED10TA PO; -QUET200T4 PO; +SILD20TA PO; +[UNRECOGNIZED DRUG - CODE] PO
[2024-09-18 02:00] VITALS: BP 118/61; PULSE 105; RESP 20; TEMP 97.8; O2SAT 94
--- NOTE | 2024-09-18 02:20 | ED.PDOC ---
History of Present Illness HPI Comments 49 y/o morbidly obese F, with a history of CHF, COPD, HTN, thyroid disease, diverticulitis, costochondritis, partial hysterectomy, C-sections, and polysubstance abuse, presents with c/o nonradiating, RUQ abdominal pain, with associated nausea and vomiting for 1 day. Poor historian. Reports being on hospice. Pain is a 6/10 in severity and has, mildly, improved since yesterday following morphine use. Endorses on recent meat consumption following abstinence period. Denies any bloody vomitus, diarrhea, constipation, fever, chills, or other associated symptoms. Time Seen by MD: 01:50 Primary Care Provider: DANIEL Reviewed Notes: Nurses Notes, Medications, Allergies Allergies: Coded Allergies: Ciprofloxacin (Verified Allergy, Unknown, 05/27/19) Latex (Verified Allergy, Unknown, 09/18/24) Sulfa Drugs (Verified Allergy, Unknown, 05/27/19) Home Meds Reported Medications Chlorpheniramine Maleate (Allergy) 4 Mg Tab, 1 TAB PO TID for 10 Days 05/31/24 Prednisone (Prednisone) 10 Mg Tab, 10 MG PO BID, MG 05/31/24 Sildenafil Citrate (Revatio) 20 Mg Tab, 20 MG PO TID, TAB 05/31/24 Lorazepam (ATIVAN TABLET) 0.5 Mg Tb, 2 MG PO BIDPRN PRN for ANXIETY, TAB 05/31/24 Levothyroxine Sodium (SYNTHROID TABLET) 50 Mcg Tb, 25 MCG PO QAM, TAB 05/31/24 Amlodipine Besylate (NORVASC TABLET) 5 Mg Tb, 5 MG PO DAILY, TAB 05/31/24 Furosemide (Furosemide) 40 Mg Tab, 40 MG PO BID, TAB 05/31/24 Dicyclomine Hcl (Dicyclomine Hcl) 20 Mg Tab, 20 MG PO TID, TAB 05/31/24 Albuterol Sulfate (Ventolin) 2.5 Mg/0.5 Ml Nb, 1 VIAL NEB Q6HR PRN for PRN, #120 VIAL 5 Refills 12/19/14 Fluticasone Propionate (FLOVENT HFA 110Mcg INH) 110 Mcg Ih, INH DAILY, #12 12/19/14 Gabapentin (Gabapentin) 400 Mg Cap, 600 MG PO TID, #270 12/19/14 Atenolol (Atenolol) 50 Mg Tab, PO DAILY, #90 12/19/14 Aspirin (Aspirin Ec Low Dose) 81 Mg Tab, PO DAILY, #90 12/19/14 Montelukast Sodium (MONTELUKAST SODIUM) 10 Mg Tab, PO HS, #30 12/19/14 Albuterol Sulfate (Ventolin Hfa) Aer, INH DAILY, #18 12/19/14 Hydrocodone-Acetaminophen (Hydrocodone/Acetaminophen) 1 Tab Tab, PO Q6HP for PAIN, #90 12/19/14 Information Source: Patient Mode of Arrival: Ambulatory Severity: Moderate Timing: Days Duration: Since onset Prehospital treatment: None Past Medical History PAST MEDICAL HISTORY: CHF, COPD, DM, HTN, Thyroid Past Medical History (Other): narcolepsy diverticulitis costochondritis Surgical History: (2x), Hysterectomy (partial ) 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 History: 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 Family History Family History: No family hx of Cancer, No family hx of DM, No family hx of Heart dottie, No family hx of HTN, No family hx of Stroke Social History Smoker: Quit Less Than 1 Year, Cigarettes Alcohol: Occasionally Drugs: Marijuana Lives In: Home All Other Systems: Reviewed and Negative (Comprehensive systems review obtained and negative except for what is stated in the HPI.) Physical Exam General Appearance: No Apparent Distress, Obese HEENT: Normal ENT Inspection, Pharynx Normal, TMs Normal Neck: Full Range of Motion, Non-Tender, Normal, Normal Inspection Respiratory: Chest Non-Tender, Lungs Clear, No Accessory Muscle Use, No Respiratory Distress, Normal Breath Sounds Cardiovascular: No Edema, No JVD, No Murmur, No Gallop, Normal Peripheral Pulses, Regular Rate/Rhythm Breast Exam: Deferred Gastrointestinal: No Organomegaly, No Pulsatile Mass, Normal Bowel Sounds, RUQ (tenderness), Soft, Tenderness (RUQ ) Genitalia: Deferred Pelvic: Deferred Rectal: Deferred Extremities: No calf tenderness, Normal capillary refill, Normal inspection, Normal range of motion, Non-tender, No pedal edema Musculoskeletal : Apperance: Normal Neurologic: Alert, franchise specialist II-XII nml as 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 Was a procedure done?: No Differential Dx Considerations may include: cholelithiasis, cholecystitis, GERD, PUD, gastritis, gastroenteritis, nephrolithiasis, diverticulitis, among others X-Ray, Labs, Meds, VS Vital Signs Date Time Temp Pulse Resp B/P (MAP) Pulse Ox O2 Delivery O2 Flow Rate FiO2 09/18/24 02:00 97.8 105 20 118/61 (80) 94 97.8 Lab Test 09/18/24 02:25 Range/Units White Blood Count 16.2 H 4.4-10.8 10^3/uL Red Blood Count 5.74 H 4.0-5.20 10^6/uL Hemoglobin 16.0 12.2-16.2 g/dL Hematocrit 48.3 H 36.0-46.0 % Mean Corpuscular Volume 84.2 80.0-100.0 fL Mean Corpuscular Hemoglobin 27.9 L 28.0-32.0 pg Mean Corpuscular Hemoglobin Concent 33.1 32.0-36.0 g/dL Red Cell Distribution Width 15.6 H 11.8-14.3 % Platelet Count 286 140-450 10^3/uL Mean Platelet Volume 8.9 6.9-10.8 fL Neutrophils (%) (Auto) 86.2 H 37.0-80.0 % Lymphocytes (%) (Auto) 9.3 L 10.0-50.0 % Monocytes (%) (Auto) 3.7 0.0-12.0 % Eosinophils (%) (Auto) 0.1 0.0-7.0 % Basophils (%) (Auto) 0.7 0.0-2.0 % Neutrophils # (Auto) 14.0 H 1.6-8.6 10 ^3/uL Lymphocytes # (Auto) 1.5 0.4-5.4 10 ^3/uL Monocytes # (Auto) 0.6 0-1.3 10 ^3/uL Eosinophils # (Auto) 0 0-0.8 10 ^3/uL Basophils # (Auto) 0.1 0-0.2 10 ^3/uL Nucleated Red Blood Cells 0.1 % Sodium Level 143 136-145 mmol/L Potassium Level 3.7 3.5-5.1 mmol/L Chloride Level 103 98-107 mmol/L Carbon Dioxide Level 32 H 20-31 mmol/L Anion Gap 8 5-15 Blood Urea Nitrogen 16 9-23 mg/dL Creatinine 0.79 0.550-1.02 mg/dL Glomerular Filtration Rate Calc 91 >90 mL/min BUN/Creatinine Ratio 20.3 H 10.0-20.0 Serum Glucose 132 H 74-106 mg/dL Calcium Level 10.1 8.7-10.4 mg/dL Total Bilirubin 0.4 0.2-1.0 mg/dL Aspartate Amino Transferase (AST) 10 L 13-40 U/L Alanine Aminotransferase (ALT) 28 7-40 U/L Alkaline Phosphatase 100 46-116 U/L Total Protein 7.2 5.7-8.2 g/dL Albumin 4.6 3.2-4.8 g/dL Lipase 31 12-53 U/L Time of 1ST Reevaluation: 02:20 Reevaluation 1ST: Unchanged Patient Education/Counseling: Diagnosis, Treatment Family Education/Counseling: No Family Present Departure 1 Departure Time of Disposition: 04:15 (Patient presented with abdominal pain that was concerning for possible appendicits, gastritis, cholecystitis, colitis, gastroenteritis, sbo, or orther possible surgical emergency. Data: 1. I ordered and reviewed the result of at least 3 labs including a CBC, BMP, and Urinalysis. 2. I independently interpreted the following tests: CT Abdoment and Pelvis is concerning for hepatobiliary disease .Risk:This patient has a high risk of morbidity due to further diagnostic testing or treatment and may suffer from an acute abdominal process disorder. Workup reveals he has intractable abdominal pain and patient should be admitted for further workup. and possible expert consultation. Patient is not septic and is clinically with CHF and volume overload we will not give fluid bolus.) Impression: Primary Impression: Intractable abdominal pain Additional Impression: Projectile vomiting with nausea Disposition: ADMITTED INPATIENT Admit to: Med Surg Condition: Serious Critical Care Note Critical Care Time?: No Stability Stability form required: No Heart Score Heart Score: Heart Score Response (Comments) Value History N/A 0 EKG N/A 0 Age N/A 0 Risk Factors N/A 0 Troponin N/A 0 Total 0 I personally scribed for RUBI MELÉNDEZ ([email or web address]) on 09/18/24 at 02:20. Electronically submitted by Drake Olivo ([email or web address]). RUBI MELÉNDEZ Sep 18, 2024 02:20 ROCIO CABALLERO MD Sep 18, 2024 04:16
[2024-09-18] MEDS ORDERED: MORPHINE SULFATE 4 MG/ML SYR/VIAL IV ONE (02:30)
[2024-09-18] MEDS ORDERED: ONDANSETRON HCL 4 MG/2 ML VIAL IV ONE (02:30)
--- NOTE | 2024-09-18 02:47 | DVH ---
CHEST RADIOGRAPH Indication: sob Technique: Single frontal view of the chest was obtained Comparison: XY CHEST XRAY 1 VIEW on DOS: 05/30/24, XY CHEST PORTABLE on DOS: 05/29/24 IMPRESSION: Heart appears normal in size. The lungs appear clear without focal airspace opacity, effusion, or pn eumothorax
[2024-09-18 02:51] LABS: Basophils # (auto) 0.1 10 ^3/uL (0-0.2); Basophils % (auto) 0.7 % (0.0-2.0); Eosinophils # (auto) 0 10 ^3/uL (0-0.8); Eosinophils % (auto) 0.1 % (0.0-7.0); Hematocrit 48.3 % (36.0-46.0); Lymphocytes # (auto) 1.5 10 ^3/uL (0.4-5.4); Lymphocytes % (auto) 9.3 % (10.0-50.0); Mean Corpuscular Hemoglobin 27.9 pg (28.0-32.0); Mean Corpuscular Hgb Conc. 33.1 g/dL (32.0-36.0); Mean Corpuscular Volume 84.2 fL (80.0-100.0); Monocytes # (auto) 0.6 10 ^3/uL (0-1.3); Monocytes % (auto) 3.7 % (0.0-12.0); Neutrophils % (auto) 86.2 % (37.0-80.0); Nucleated Red Blood Cells % 0.1 %; Platelet Count (auto) 286 10^3/uL (140-450); Red Blood Cells 5.74 10^6/uL (4.0-5.20); Red Cell Distribution Width 15.6 % (11.8-14.3); White Blood Cell 16.2 10^3/uL (4.4-10.8)
[2024-09-18 02:59] LABS: Alanine Aminotransferase 28 U/L (7-40); Albumin 4.6 g/dL (3.2-4.8); Alkaline Phosphatase 100 U/L (46-116); Anion Gap 8 (5-15); BUN/Creatinine Ratio 20.3 (10.0-20.0); Bilirubin, Total 0.4 mg/dL (0.2-1.0); Blood Urea Nitrogen 16 mg/dL (9-23); Calcium 10.1 mg/dL (8.7-10.4); Chloride 103 mmol/L (98-107); Lipase 31 U/L (12-53); Potassium 3.7 mmol/L (3.5-5.1); Sodium 143 mmol/L (136-145); Total Protein 7.2 g/dL (5.7-8.2)
[2024-09-18 03:05] LABS: Aspartate Aminotransferase 10 U/L (13-40); Carbon Dioxide 32 mmol/L (20-31); Glucose 132 mg/dL (74-106)
--- NOTE | 2024-09-18 03:15 | DVH ---
Exam: CT CT AB PEL WO CON-NO ORAL OR IV History: abd pain Comparison Study: None available at time of dictation. TECHNIQUE: Multidetector CT of the abdomen and pelvis was performed from lung bases to pubic symphysi s. Imaging was performed without IV contrast. Axial, coronal and sagittal multiplanar reformats were obtained from the axial data set by the technologist. Radiation optimization: All CT scans at this facility use at least one of these dose optimization divya hniques: automated exposure control mA and/or kV adjustment per patient size (includes targeted exam s where dose is matched to clinical indication) or iterative reconstruction. Radiation Dose Information: CT Dose: CTDI volume is 25.6 mGy. Dose-length product is 1510.43 mGy*cm FINDINGS: Evaluation of solid organs is limited due to lack of intravenous contrast use. Imaged portions of the lung bases appear unremarkable. There are coronary artery calcifications. The liver is lobulated in contour. Gallbladder, spleen, adrenal glands, and pancreas appear unremarka ble. Kidneys appear symmetric. No evidence of bowel obstruction or focal bowel wall thickening. Small right lower quadrant menjivar's hernia containing a small bowel loop without evidence of obstruction. No free fluid, free air, or adenopathy. Large collaterals in the anterior chest and abdominal wall. Age-indeterminate compression deformity of L1 with mild retropulsion of fracture fragments of the ant erior endplate resulting in a degree of mild spinal canal stenosis. IMPRESSION: 1. Appearance of the liver suggest hepatocellular disease. Correlation with lFTs is recommended. 2. Small nonobstructed small-bowel Menjivar's hernia in the right lower quadrant 3. Age-indeterminate 50% compression deformity of L1 with mild retropulsion of fracture fragments res ulting in mild 2 moderate spinal canal stenosis. Correlation with point tenderness and consideration for MRI is recommended.
[2024-09-18] MEDS ORDERED: VANCOMYCIN 1GM/200ML PM 200 ML IV ONE (04:15)
[2024-09-18] MEDS ORDERED: CEFEPIME 2GM/50ML NS 50 ML IV ONE (04:15)
--- NOTE | 2024-09-18 04:46 | DVHHPRES ---
History of Present Illness Resident Creating Document: JENARO DOSS RESIDENT History of Present Illness Ms Xavier is a 49-year-old female with PMHx congestive heart failure, Radha's thyroiditis, COPD on home oxygen PRN, hypertension, obesity hypoventilation syndrome, IBS, narcolepsy, diverticulosis, uterine fibroids, history of diabetes, costochondritis, hysterectomy, morbid obesity who presented to the ER with a chief complaint of right-sided abdominal mass and pain for about 6 months, which has been worsened over the past 4 days. Patient reports that she has felt crampy abdominal pain mostly in the right upper quadrant on and off for the past 6 months which has worsened over the past 4 days, associ ated with nausea, vomiting bloating, flatulence, chills, night sweats, alternating constipation and diarrhea. She also reports unintentional weight loss and does her cloths are getting looser. Denied hematemesis or melena. Patient has been on hospice for the past 2.5 years for CHF and COPD Patient also reports chest tenderness and pleuritic chest pain, radiating to the back and unrelated to exertion, sharp and burning type in nature. Last echocardiogram 05/30/2024 showed EF 55%. Technically limited because of body habitus. Moderate pulmonary hypertension with the estimated PASP 50-[address] abdomen showing hepatocellular disease. Small nonobstructive small bowel restarted hernia in the right lower quadrant. On arrival to the ER, patient is tachycardic, saturating 94 on room air. WBC. WBC count 16 with 86 neutrophils PMH/PSH :congestive heart failure, Radha's thyroiditis, COPD on home oxygen PRN, hypertension, obesity hypoventilation syndrome, IBS, narcolepsy, diverticulosis, uterine fibroids, history of diabetes, costochondritis, hysterectomy, morbid obesity Social history: Lives with a caregiver, shares a room, Smokes anywhere between 5 to 20 cigarettes a day for the past 35 years, drinks socially, reports methamphetamine use-last use 1 week back PCP: Dr. Horowitz [place] medications: Methocarbamol 750 mg twice daily, aspirin 81, nitroglycerin p.r.n., sertraline 100 mg daily for anxiety, prednisolone 10 mg daily, levothyroxine, enalapril 20 mg loperamide 2 mg, amlodipine, montelukast 10 mg daily, isosorbide mononitrate then mg TID, gabapentin 600 mg TID, omeprazole 20 mg daily Patient seen and examined in the ER. Has inspiratory wheezing bilaterally. Review of Systems Constitutional: Yes: Chills, Sweats, Weakness, Malaise Respiratory: Shortness of breath Cardiovascular: Chest Pain Gastrointestinal: Nausea, Vomiting, Abdominal Pain, Diarrhea, Constipation Musculoskeletal: shoulder pain Allergies: Coded Allergies: Ciprofloxacin (Verified Allergy, Unknown, 05/27/19) Latex (Verified Allergy, Unknown, 09/18/24) Sulfa Drugs (Verified Allergy, Unknown, 05/27/19) Exam Vital Signs Vital Signs Date Time Temp Pulse Resp B/P (MAP) Pulse Ox O2 Delivery O2 Flow Rate FiO2 09/18/24 02:00 97.8 105 20 118/61 (80) 94 97.8 Exam Morbidly obese female patient lying in bed, in no acute distress General: Morbidly obese, afebrile, palor, mucosae are moist Cardiovascular: Regular S1 and S2. No murmurs, gallops or rubs. No JVD elevation. 2+ pitting bilateral edema, right greater than left. Portable chest tenderness Respiratory: Inspiratory wheezing heard on auscultation bilaterally. Decreased breath sounds bilaterally. Saturating 94 on room air. Abdomen: Soft, right upper quadrant tender, distended, hypoactive bowel sounds, no rebound tenderness, no organomegaly, no masses Genitourinary: Deferred MSK/skin: Mobilizes 4 limbs. Skin is dry and warm Neurological: No motor, no sensitive deficits, normal speech. Pupils are isocoric and reactive. Psych/Mental Status: A/Ox3 Labs/Xrays Labs Test 09/18/24 02:25 Range/Units White Blood Count 16.2 H 4.4-10.8 10^3/uL Red Blood Count 5.74 H 4.0-5.20 10^6/uL Hemoglobin 16.0 12.2-16.2 g/dL Hematocrit 48.3 H 36.0-46.0 % Mean Corpuscular Volume 84.2 80.0-100.0 fL Mean Corpuscular Hemoglobin 27.9 L 28.0-32.0 pg Mean Corpuscular Hemoglobin Concent 33.1 32.0-36.0 g/dL Red Cell Distribution Width 15.6 H 11.8-14.3 % Platelet Count 286 140-450 10^3/uL Mean Platelet Volume 8.9 6.9-10.8 fL Neutrophils (%) (Auto) 86.2 H 37.0-80.0 % Lymphocytes (%) (Auto) 9.3 L 10.0-50.0 % Monocytes (%) (Auto) 3.7 0.0-12.0 % Eosinophils (%) (Auto) 0.1 0.0-7.0 % Basophils (%) (Auto) 0.7 0.0-2.0 % Neutrophils # (Auto) 14.0 H 1.6-8.6 10 ^3/uL Lymphocytes # (Auto) 1.5 0.4-5.4 10 ^3/uL Monocytes # (Auto) 0.6 0-1.3 10 ^3/uL Eosinophils # (Auto) 0 0-0.8 10 ^3/uL Basophils # (Auto) 0.1 0-0.2 10 ^3/uL Nucleated Red Blood Cells 0.1 % Sodium Level 143 136-145 mmol/L Potassium Level 3.7 3.5-5.1 mmol/L Chloride Level 103 98-107 mmol/L Carbon Dioxide Level 32 H 20-31 mmol/L Anion Gap 8 5-15 Blood Urea Nitrogen 16 9-23 mg/dL Creatinine 0.79 0.550-1.02 mg/dL Glomerular Filtration Rate Calc 91 >90 mL/min BUN/Creatinine Ratio 20.3 H 10.0-20.0 Serum Glucose 132 H 74-106 mg/dL Calcium Level 10.1 8.7-10.4 mg/dL Total Bilirubin 0.4 0.2-1.0 mg/dL Aspartate Amino Transferase (AST) 10 L 13-40 U/L Alanine Aminotransferase (ALT) 28 7-40 U/L Alkaline Phosphatase 100 46-116 U/L Total Protein 7.2 5.7-8.2 g/dL Albumin 4.6 3.2-4.8 g/dL Lipase 31 12-53 U/L Assessment/Plan Assessment/Plan Sepsis, likely source GI 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 Pulmonary hypertension- PASP 55 mmHg Unintentional wt loss History of diabetes-A1c 5.8 Radha thyroiditis Hypertension Obesity hypoventilation syndrome Irritable bowel syndrome History of narcolepsy Diverticulosis Uterine fibroids History of costochondritis Morbid obesity Last echocardiogram 05/30/2024 showed EF 55%. Technically limited because of body habitus. Moderate pulmonary hypertension with the estimated PASP 50-[address] abdomen showed Appearance of the liver suggest hepatocellular disease. Correlation with lFTs is recommended. Small nonobstructed small-bowel Menjivar's hernia in the right lower quadrant. Age-indeterminate 50% compression deformity of L1 with mild retropulsion of fracture fragments resulting in mild 2 moderate spinal canal stenosis. Correlation with point tenderness and consideration for MRI is recommended. WBC 16.2 with 86% neutrophils Plan: IV vancomycin and IV cefepime once by ER 09/18, started IV ceftriaxone and metronidazole IV NS 250 cc bolus Continue aspirin 81 mg daily, atorvastatin 40 mg daily lasix 40mg iv bid Continue antihypertensive regimen enalapril 20 mg, amlodipine, isosorbide mononitrate Follow up with GI consulted, liver ultrasound, AFP level, hepatitis panel Follow up with the EKG, troponin level CPAP at nighttime Nebulized ipratropium and albuterol q.4 scheduled LE doppler US Tab levothyroxine 25mcg daily Lovenox 40 mg sc daily Pantoprazole 40 mg daily Plan discussed with patient in which all questions have been answered Goals of care discussed for more than 28 minute, full code status, okay to CPR, okay to intubate, no tracheostomy Case discussed with Dr. Dillard Plan discussed with: Patient, Other (Caregiver) Date of Service: Sep 18, 2024 Billing Provider: KRISTEN DILLARD MD Common Visit Codes: [id number] INP/OBS CARE (HIGH) JENARO DOSS RESIDENT Sep 18, 2024 04:46
[2024-09-18 05:22] LABS: INR 0.96 (0.9-1.15); Partial Thromboplastin Time 24.7 SEC (24.5-34.5); Prothrombin Time 10.2 sec (9.3-11.8)
[2024-09-18] MEDS ORDERED: DEXTROSE (50%) 50ML SYRG IV PRN (06:15)
[2024-09-18] MEDS ORDERED: HYDROcodone-ACET 5/325MG TAB PO PRN (06:15)
[2024-09-18] MEDS ORDERED: IPRATROPIUM BROM 0.5 MG/2.5ML INH SOL NEB ONE (06:15)
[2024-09-18] MEDS ORDERED: SODIUM CHLORIDE 0.9% 250 ML IV ONE (06:15)
[2024-09-18] MEDS ORDERED: ACETAMINOPHEN 500 MG TAB or CAP PO PRN (06:15)
[2024-09-18] MEDS ORDERED: PANTOPRAZOLE 40 MG/10 ML VIAL INJ IV ONE (06:15)
[2024-09-18] MEDS ORDERED: MORPHINE SULFATE INJ 2 MG/ml SYRG IV PRN (06:15)
[2024-09-18] MEDS ORDERED: InsuLIN REG 1unit/0.01ml Soln (100units/ml) SC SCH (07:00)
[2024-09-18] MEDS ORDERED: LEVOTHYROXINE SODIUM 50 MCG TAB PO SCH (07:00)
[2024-09-18] MEDS ORDERED: ACCU-CHEK COMFORT CURVE STRIP VI SCH (07:00)
[2024-09-18] MEDS ORDERED: metroNIDAZOLE 500MG/100ML 100 ML IV SCH (07:00)
--- NOTE | 2024-09-18 07:24 | DVH ---
EXAM: US Abdomen Limited, Right Upper Quadrant CLINICAL INDICATION: RUQ pain TECHNIQUE: Real-time ultrasound of the right upper quadrant with image documentation. COMPARISON: None FINDINGS: LIVER: Fatty infiltration of the liver. Liver measures up to 16.5 cm. No intrahepatic bile duct d ilation. GALLBLADDER: Unremarkable. No gallstones. COMMON BILE DUCT: CBD not visualized. PANCREAS: Unremarkable as visualized. RIGHT KIDNEY: Unremarkable. No stones. No hydronephrosis. Right kidney measures 10.3 cm. OTHER FINDINGS: . . IMPRESSION: Fatty infiltration of the liver.
--- NOTE | 2024-09-18 07:36 | DVH ---
EXAM: US Duplex Bilateral Lower Extremities Veins CLINICAL INDICATION: dvt TECHNIQUE: Real-time duplex ultrasound scan of the bilateral lower extremity veins integrating B-mod e two-dimensional vascular structure, Doppler spectral analysis, color flow Doppler imaging and compr ession. COMPARISON: None FINDINGS: RIGHT DEEP VEINS: Unremarkable. No DVT in the right common femoral, femoral, proximal deep femoral or popliteal veins. The veins demonstrate normal color flow, are normally compressible, with normal phasic flow and/or augmentation response. RIGHT SUPERFICIAL VEINS: Unremarkable. No thrombus in the visualized right great saphenous vein. LEFT DEEP VEINS: Unremarkable. No DVT in the left common femoral, femoral, proximal deep femoral o r popliteal veins. The veins demonstrate normal color flow, are normally compressible, with normal p hasic flow and/or augmentation response. LEFT SUPERFICIAL VEINS: Unremarkable. No thrombus in the visualized left great saphenous vein. SOFT TISSUES: No acute findings. No popliteal cyst. OTHER FINDINGS: . None. IMPRESSION: No DVT.
[2024-09-18] MEDS ORDERED: FUROSEMIDE 40 MG/4 ML VIAL IV ONE (07:45)
[2024-09-18 08:03] LABS: Erythrocyte Sedimentation Rate 11 mm/hr (0-20)
[2024-09-18] MEDS ORDERED: cefTRIAXone 1GM/50ML D5W 50 ML IV SCH (09:00)
[2024-09-18] MEDS ORDERED: ASPirin-EC 81 mg tab PO SCH (10:00)
[2024-09-18] MEDS ORDERED: ISOSORBIDE MONONITRATE 20 MG TAB PO SCH (10:00)
[2024-09-18] MEDS ORDERED: amLODIPine BESYLATE 5 MG TAB PO SCH (10:00)
[2024-09-18] MEDS ORDERED: FUROSEMIDE 40 MG TAB PO SCH (10:00)
[2024-09-18] MEDS ORDERED: ENOXAPARIN SOD 40 MG/0.4 ML SYRINGE SC SCH (10:00)
[2024-09-18] MEDS ORDERED: ENALAPRIL MALEATE 10 MG TAB PO SCH (10:00)
--- NOTE | 2024-09-18 11:01 | DVHDSRES ---
Discharge Summary Date of Admission Resident Creating Document: KARINE TAYLOR RESIDENT Sep 18, 2024 at 04:41 Date of Discharge: Sep 18, 2024 Admitting Diagnosis Acute abdominal pain Wounds: Unable to evaluate Labs/Diagnostic Data: Laboratory Results Test 09/18/24 04:57 09/18/24 02:25 Lactic Acid Level 0.8 mmol/L (0.4-2.0) White Blood Count 16.2 10^3/uL (4.4-10.8) Red Blood Count 5.74 10^6/uL (4.0-5.20) Hemoglobin 16.0 g/dL (12.2-16.2) Hematocrit 48.3 % (36.0-46.0) Mean Corpuscular Volume 84.2 fL (80.0-100.0) Mean Corpuscular Hemoglobin 27.9 pg (28.0-32.0) Mean Corpuscular Hemoglobin Concent 33.1 g/dL (32.0-36.0) Red Cell Distribution Width 15.6 % (11.8-14.3) Platelet Count 286 10^3/uL (140-450) Mean Platelet Volume 8.9 fL (6.9-10.8) Neutrophils (%) (Auto) 86.2 % (37.0-80.0) Lymphocytes (%) (Auto) 9.3 % (10.0-50.0) Monocytes (%) (Auto) 3.7 % (0.0-12.0) Eosinophils (%) (Auto) 0.1 % (0.0-7.0) Basophils (%) (Auto) 0.7 % (0.0-2.0) Neutrophils # (Auto) 14.0 10 ^3/uL (1.6-8.6) Lymphocytes # (Auto) 1.5 10 ^3/uL (0.4-5.4) Monocytes # (Auto) 0.6 10 ^3/uL (0-1.3) Eosinophils # (Auto) 0 10 ^3/uL (0-0.8) Basophils # (Auto) 0.1 10 ^3/uL (0-0.2) Nucleated Red Blood Cells 0.1 % Erythrocyte Sedimentation Rate 11 mm/hr (0-20) Prothrombin Time 10.2 sec (9.3-11.8) Prothrombin Time INR 0.96 (0.9-1.15) Activated Partial Thromboplast Time 24.7 SEC (24.5-34.5) Sodium Level 143 mmol/L (136-145) Potassium Level 3.7 mmol/L (3.5-5.1) Chloride Level 103 mmol/L (98-107) Carbon Dioxide Level 32 mmol/L (20-31) Anion Gap 8 (5-15) Blood Urea Nitrogen 16 mg/dL (9-23) Creatinine 0.79 mg/dL (0.550-1.02) Glomerular Filtration Rate Calc 91 mL/min (>90) BUN/Creatinine Ratio 20.3 (10.0-20.0) Serum Glucose 132 mg/dL (74-106) Hemoglobin A1c 5.8 % A1C (<5.7) Calcium Level 10.1 mg/dL (8.7-10.4) Magnesium Level 2.0 mg/dL (1.6-2.6) Total Bilirubin 0.4 mg/dL (0.2-1.0) Aspartate Amino Transferase (AST) 10 U/L (13-40) Alanine Aminotransferase (ALT) 28 U/L (7-40) Alkaline Phosphatase 100 U/L (46-116) Troponin I High Sensitivity 3 ng/L (</=34) B-Type Natriuretic Peptide 12.84 pg/mL (0-100) Total Protein 7.2 g/dL (5.7-8.2) Albumin 4.6 g/dL (3.2-4.8) Lipase 32 U/L (12-53) Vitamin B12 Level 1630 pg/mL (211-911) Vitamin D 25-Hydroxy 54.8 ng/mL (30.0-100) Thyroid Stimulating Hormone (TSH) 1.58 uIU/mL (0.55-4.78) Beta HCG, Quantitative 1.3 mIU/mL (1.5-4.2) Other Laboratory Tests 09/18/24 02:25 Brief Hx & Hospital Course: This was a 49-year-old female with PMHx congestive heart failure, Radha's thyroiditis, COPD on home oxygen PRN, hypertension, obesity hypoventilation syndrome, IBS, narcolepsy, diverticulosis, uterine fibroids, history of diabetes, costochondritis, hysterectomy, morbid obesity who presented to the ER with a chief complaint of right-sided abdominal mass and pain for about 6 months, which has been worsened over the past 4 days. Patient reports that she has felt crampy abdominal pain mostly in the right upper quadrant on and off for the past 6 months which has worsened over the past 4 days, associated with nausea, vomiting bloating, flatulence, chills, night sweats, alternating constipation and diarrhea. She also reports unintentional weight loss and does her cloths are getting looser. Denied hematemesis or melena. Patient has been on hospice for the past 2.5 years for CHF and COPD. Patient eloped and we where not able to evaluate her at this time. Physical examination as documented in History and Physical on the day of discharge Discussed with Dr. King Operations or Procedures Exam: CT CT AB PEL WO CON-NO ORAL OR IV History: abd pain Comparison Study: None available at time of dictation. TECHNIQUE: Multidetector CT of the abdomen and pelvis was performed from lung bases to pubic symphysis. Imaging was performed without IV contrast. Axial, coronal and sagittal multiplanar reformats were obtained from the axial data set by the technologist. Radiation optimization: All CT scans at this facility use at least one of these dose optimization techniques: automated exposure control mA and/or kV adjustment per patient size (includes targeted exams where dose is matched to clinical indication) or iterative reconstruction. Radiation Dose Information: CT Dose: CTDI volume is 25.6 mGy. Dose-length product is 1510.43 mGy*cm FINDINGS: Evaluation of solid organs is limited due to lack of intravenous contrast use. Imaged portions of the lung bases appear unremarkable. There are coronary artery calcifications. The liver is lobulated in contour. Gallbladder, spleen, adrenal glands, and pancreas appear unremarkable. Kidneys appear symmetric. No evidence of bowel obstruction or focal bowel wall thickening. Small right lower quadrant garcia's hernia containing a small bowel loop without evidence of obstruction. No free fluid, free air, or adenopathy. Large collaterals in the anterior chest and abdominal wall. Age-indeterminate compression deformity of L1 with mild retropulsion of fracture fragments of the anterior endplate resulting in a degree of mild spinal canal stenosis. IMPRESSION: 1. Appearance of the liver suggest hepatocellular disease. Correlation with lFTs is recommended. 2. Small nonobstructed small-bowel Garcia's hernia in the right lower quadrant 3. Age-indeterminate 50% compression deformity of L1 with mild retropulsion of fracture fragments resulting in mild 2 moderate spinal canal stenosis. Correlation with point tenderness and consideration for MRI is recommended. CHEST RADIOGRAPH Indication: sob Technique: Single frontal view of the chest was obtained Comparison: XY CHEST XRAY 1 VIEW on DOS: 05/30/24, XY CHEST PORTABLE on DOS: 05/29/24 IMPRESSION: Heart appears normal in size. The lungs appear clear without focal airspace opacity, effusion, or pneumothorax EXAM: US Abdomen Limited, Right Upper Quadrant CLINICAL INDICATION: RUQ pain TECHNIQUE: Real-time ultrasound of the right upper quadrant with image documentation. COMPARISON: None FINDINGS: LIVER: Fatty infiltration of the liver. Liver measures up to 16.5 cm. No intrahepatic bile duct dilation. GALLBLADDER: Unremarkable. No gallstones. COMMON BILE DUCT: CBD not visualized. PANCREAS: Unremarkable as visualized. RIGHT KIDNEY: Unremarkable. No stones. No hydronephrosis. Right kidney measures 10.3 cm. OTHER FINDINGS: . . IMPRESSION: Fatty infiltration of the liver. EXAM: US Duplex Bilateral Lower Extremities Veins CLINICAL INDICATION: dvt TECHNIQUE: Real-time duplex ultrasound scan of the bilateral lower extremity veins integrating B-mode two-dimensional vascular structure, Doppler spectral analysis, color flow Doppler imaging and compression. COMPARISON: None FINDINGS: RIGHT DEEP VEINS: Unremarkable. No DVT in the right common femoral, femoral, proximal deep femoral or popliteal veins. The veins demonstrate normal color flow, are normally compressible, with normal phasic flow and/or augmentation response. RIGHT SUPERFICIAL VEINS: Unremarkable. No thrombus in the visualized right great saphenous vein. LEFT DEEP VEINS: Unremarkable. No DVT in the left common femoral, femoral, proximal deep femoral or popliteal veins. The veins demonstrate normal color flow, are normally compressible, with normal phasic flow and/or augmentation response. LEFT SUPERFICIAL VEINS: Unremarkable. No thrombus in the visualized left great saphenous vein. SOFT TISSUES: No acute findings. No popliteal cyst. OTHER FINDINGS: . None. IMPRESSION: No DVT. 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 Pulmonary hypertension- PASP 55 mmHg Unintentional wt loss History of diabetes-A1c 5.8 Radha thyroiditis Hypertension Obesity hypoventilation syndrome Irritable bowel syndrome History of narcolepsy Diverticulosis Uterine fibroids History of costochondritis Morbid obesity Discharge Disposition: Eloped (Unable to evaluate and assess the patient due to elopement before assessment.) Discharge Instruct/Medications Diet: See Comment (Eloped) Activity: See Comment (Eloped) Follow Up/Referral: Eloped Medications: Eloped Discharge Statement: "Patient was advised to return to the ER or call 911 if any headaches, dizziness, shortness of breath, chest pain, abdominal pain, bleeding, fevers, or worsening of medical condition. Patient was counseled about treatment plan, medications, possible side effects, patientverbalized understanding. All questions were answered to the best of my ability. This discharge took greater then 30 minutes in planning, reviewing documentation, counseling the patient, and discussing with other team members." ASSESSMENT ASSESSMENT Assessment Addendum Addendum Addendum I was physically present for the jansen portions of the service provided to patient by THE RESIDENT. I have reviewed the documentation, discussed the case with resident and agree with the resident's documentation except as noted. Also the patient's clinical case was discussed with the patient's nurse. This medical document was created using an electronic medical record system with computerized dictation system. Although this document has been carefully reviewed, there might still be some phonetic and typographical errors. These areas are purely typographical due to imperfections of the software programs, and do not reflect any compromise in the patient's medical care. Late signature. Date of Service: Sep 18, 2024 Billing Provider: FAUZIA KING MD Common Visit Codes: 73458-EAX/OBS DISCH DAY >30min KARINE TAYLOR Sep 18, 2024 11:01 FAUZIA KING MD Sep 19, 2024 09:53
[2024-09-18] MEDS ORDERED: IPRATROPIUM BROM 0.5 MG/2.5ML INH SOL NEB SCH (12:00)
[2024-09-18] MEDS ORDERED: SILDENAFIL CITRATE 20 MG TAB PO SCH (14:00)
[2024-09-18] MEDS ORDERED: FUROSEMIDE 40 MG/4 ML VIAL IV SCH (18:00)
[2024-09-18] MEDS ORDERED: MONTELUKAST SODIUM 10 MG TAB PO SCH (22:00)
[2024-09-19] MEDS ORDERED: PANTOPRAZOLE 40 MG/10 ML VIAL INJ IV SCH (10:00)
== END 2024-09-18 06:53 | disposition left against medical advice (07) | DRG 872 ==
LOC: ER 01:41 → OVERFLOW 04:41
PROVIDERS: ADMIT Internal Medicine; ATTEND Emergency Medicine
DX: A41.9 Sepsis, unspecified organism (principal); E66.2 Morbid (severe) obesity with alveolar hypoventilation; Z68.43 Body mass index [BMI] 50.0-59.9, adult; I50.9 Heart failure, unspecified; I11.0 Hypertensive heart disease with heart failure; E11.9 Type 2 diabetes mellitus without complications; J44.9 Chronic obstructive pulmonary disease, unspecified; F12.10 Cannabis abuse, uncomplicated; R11.12 Projectile vomiting; I27.20 Pulmonary hypertension, unspecified; F15.10 Other stimulant abuse, uncomplicated; K70.30 Alcoholic cirrhosis of liver without ascites; Z53.29 Procedure and treatment not carried out because of patient's decision for other reasons; D25.9 Leiomyoma of uterus, unspecified; F10.20 Alcohol dependence, uncomplicated; Y90.9 Presence of alcohol in blood, level not specified; G47.419 Narcolepsy without cataplexy; Z88.2 Allergy status to sulfonamides; Z88.1 Allergy status to other antibiotic agents; Z91.040 Latex allergy status; Z79.899 Other long term (current) drug therapy; Z79.82 Long term (current) use of aspirin; Z79.891 Long term (current) use of opiate analgesic; Z79.1 Long term (current) use of non-steroidal anti-inflammatories (NSAID); Z87.891 Personal history of nicotine dependence; Z99.81 Dependence on supplemental oxygen; Z90.711 Acquired absence of uterus with remaining cervical stump
CPT/HCPCS: 36415; 71045; 74176; 76705; 80053; 82306; 82607; 83036; 83605; 83690; 83735; 83880; 84443; 84484; 84702; 85025; 85610; 85652; 85730; 93970; G0378

== ENCOUNTER 2024-11-14 02:25 | Emergency (ER) | payer OTHER, MEDICAID ==
[~2024-11-14] VITALS: Ht 165.1 cm; Wt 133.3 kg
[2024-11-14 02:53] VITALS: O2SAT 96
--- NOTE | 2024-11-14 03:19 | ED.PDOC ---
GI ASSESSMENT HPI Comments 49 year old female presents to the ED with a chief complaint of abdominal pain onset 3 weeks. Patient states she has been experiencing intermittent abdominal pain for the past 3 weeks as well as nausea. Patient states she has been seen in this ED as well as [place] for similar symptoms. PMHx CHF, COPD, DM, HTN, thyroid disease. Denies chest pain, shortness of breath, vomiting, diarrhea, headache, dizziness, fevers, chills. No other symptoms or modifying factors present at this time. Chief Complaint: Abdominal Pain Time Seen by MD: 03:10 Primary Care Provider: DANIEL Reviewed Notes: Medications, Allergies Allergies: Coded Allergies: Ciprofloxacin (Verified Allergy, Unknown, 05/27/19) Latex (Verified Allergy, Unknown, 09/18/24) Sulfa Drugs (Verified Allergy, Unknown, 05/27/19) Home Meds Reported Medications Chlorpheniramine Maleate (Allergy) 4 Mg Tab, 1 TAB PO TID for 10 Days 05/31/24 Prednisone (Prednisone) 10 Mg Tab, 10 MG PO BID, MG 05/31/24 Sildenafil Citrate (Revatio) 20 Mg Tab, 20 MG PO TID, TAB 05/31/24 Lorazepam (ATIVAN TABLET) 0.5 Mg Tb, 2 MG PO BIDPRN PRN for ANXIETY, TAB 05/31/24 Levothyroxine Sodium (SYNTHROID TABLET) 50 Mcg Tb, 25 MCG PO QAM, TAB 05/31/24 Amlodipine Besylate (NORVASC TABLET) 5 Mg Tb, 5 MG PO DAILY, TAB 05/31/24 Furosemide (Furosemide) 40 Mg Tab, 40 MG PO BID, TAB 05/31/24 Dicyclomine Hcl (Dicyclomine Hcl) 20 Mg Tab, 20 MG PO TID, TAB 05/31/24 Albuterol Sulfate (Ventolin) 2.5 Mg/0.5 Ml Nb, 1 VIAL NEB Q6HR PRN for PRN, #120 VIAL 5 Refills 12/19/14 Fluticasone Propionate (FLOVENT HFA 110Mcg INH) 110 Mcg Ih, INH DAILY, #12 12/19/14 Gabapentin (Gabapentin) 400 Mg Cap, 600 MG PO TID, #270 12/19/14 Atenolol (Atenolol) 50 Mg Tab, PO DAILY, #90 12/19/14 Aspirin (Aspirin Ec Low Dose) 81 Mg Tab, PO DAILY, #90 12/19/14 Montelukast Sodium (MONTELUKAST SODIUM) 10 Mg Tab, PO HS, #30 12/19/14 Albuterol Sulfate (Ventolin Hfa) Aer, INH DAILY, #18 12/19/14 Hydrocodone-Acetaminophen (Hydrocodone/Acetaminophen) 1 Tab Tab, PO Q6HP for PAIN, #90 12/19/14 Information Source: Patient Mode of Arrival: Ambulatory Timing: Weeks Duration: Since onset Prehospital treatment: None Quality: Cramping Vomitus: None Recent: None Recent Hx of: None Pain Location: Diffuse Modifying Factors: Nothing Associated sign and symptoms: Abdominal Pain Past Medical History PAST MEDICAL HISTORY: CHF, COPD, DM, HTN, Thyroid Surgical History: , Hysterectomy 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 History: 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 Family History Family History: No family hx of Cancer, No family hx of DM, No family hx of Heart dottie, No family hx of HTN, No family hx of Stroke Social History Smoker: Quit Less Than 1 Year, Cigarettes Alcohol: Occasionally Drugs: Marijuana Lives In: Home Constitutional: denies: chills, diaphoresis, fatigue, fever, malaise, sweats, weakness, others EENTM: denies: blurred vision, double vision, ear bleeding, ear discharge, ear drainage, ear pain, ear ringing, eye pain, eye redness, hearing loss, mouth pain, mouth swelling, nasal discharge, nose bleeding, nose congestion, nose pain, photophobia, tearing, throat pain, throat swelling, voice changes, others Respiratory: denies: cough, hemoptysis, orthopnea, SOB at rest, shortness of breath, SOB with excertion, stridor, wheezing, others Cardiovascular: denies: chest pain, dizzy spells, diaphoresis, Dyspnea on exertion, edema, irregular heart beat, left arm pain, lightheadedness, palpitations, PND, syncope, others Gastrointestinal: reports: abdominal pain, nausea; denies: abdomen distended, blood streaked bowels, constipated, diarrhea, dysphagia, difficulty swallowing, hematemesis, melena, poor appetite, poor fluid intake, rectal bleeding, rectal pain, vomiting, others Genitourinary: denies: abnormal vagina bleeding, burning, dyspareunia, dysuria, flank pain, frequency, hematuria, incontinence, pain, , vagina discharge, urgency, others Neurological: denies: dizziness, fainting, headache, left sided numbness, left sided weakness, numbness, paresthesia, pre-existing deficit, right sided numbness, right sided weakness, seizure, speech problems, tingling, tremors, weakness, others Musculoskeletal: denies: back pain, gout, joint pain, joint swelling, muscle pain, muscle stiffness, neck pain, others Integumetry: denies: bruises, change in color, change in hair/nails, dryness, laceration, lesions, lumps, rash, wounds, others Allergic/Immunocompromised: denies: Difficulty Healing, Frequent Infections, Hives, Itching, others Hematologic/Lymphatic: denies: anemia, blood clots, easy bleeding, easy bruising, swollen glands, others Endocrine: denies: excessive hunger, excessive sweating, excessive thirst, excessive urination, flushing, intolerance to cold, intolerance to heat, unexplained weight gain, unexplained weight loss, others Psychiatric: denies: anxiety, bipolar disorder, depression, hopeless, panic disorder, schizophrenia, sleepless, suicidal, others All Other Systems: Reviewed and Negative Physical Exam General Appearance: Normal HEENT: Normal ENT Inspection, Pharynx Normal, TMs Normal Neck: Full Range of Motion, Non-Tender, Normal, Normal Inspection Respiratory: Chest Non-Tender, Lungs Clear, No Accessory Muscle Use, No Respiratory Distress, Normal Breath Sounds Cardiovascular: No Edema, No JVD, No Murmur, No Gallop, Normal Peripheral Pulses, Regular Rate/Rhythm Breast Exam: Deferred Gastrointestinal: No Organomegaly, Non Tender, No Pulsatile Mass, Normal Bowel Sounds, Soft Genitalia: Deferred Pelvic: Deferred Rectal: Deferred Extremities: No calf tenderness, Normal capillary refill, Normal inspection, Normal range of motion, Non-tender, No pedal edema Musculoskeletal : Apperance: Normal 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 Was a procedure done?: No GI differential Dx Differential Diagnosis: Gastritis/PUD, Gastroenteritis, Dehydration, Electrolyte Imbalance X-Ray, Labs, Meds, VS Vital Signs Date Time Temp Pulse Resp B/P (MAP) Pulse Ox O2 Delivery O2 Flow Rate FiO2 11/14/24 02:53 98.1 87 20 184/96 (125) 96 98.1 Lab Test 11/14/24 03:18 Range/Units White Blood Count 12.0 H 4.4-10.8 10^3/uL Red Blood Count 5.10 4.0-5.20 10^6/uL Hemoglobin 14.2 12.2-16.2 g/dL Hematocrit 42.8 36.0-46.0 % Mean Corpuscular Volume 83.8 80.0-100.0 fL Mean Corpuscular Hemoglobin 27.8 L 28.0-32.0 pg Mean Corpuscular Hemoglobin Concent 33.2 32.0-36.0 g/dL Red Cell Distribution Width 14.8 H 11.8-14.3 % Platelet Count 259 140-450 10^3/uL Mean Platelet Volume 8.8 6.9-10.8 fL Neutrophils (%) (Auto) 74.7 37.0-80.0 % Lymphocytes (%) (Auto) 17.1 10.0-50.0 % Monocytes (%) (Auto) 5.9 0.0-12.0 % Eosinophils (%) (Auto) 1.2 0.0-7.0 % Basophils (%) (Auto) 1.1 0.0-2.0 % Neutrophils # (Auto) 9.0 H 1.6-8.6 10 ^3/uL Lymphocytes # (Auto) 2.1 0.4-5.4 10 ^3/uL Monocytes # (Auto) 0.7 0-1.3 10 ^3/uL Eosinophils # (Auto) 0.1 0-0.8 10 ^3/uL Basophils # (Auto) 0.1 0-0.2 10 ^3/uL Nucleated Red Blood Cells 0.0 % Sodium Level 143 136-145 mmol/L Potassium Level 3.5 3.5-5.1 mmol/L Chloride Level 107 98-107 mmol/L Carbon Dioxide Level 27 20-31 mmol/L Anion Gap 9 5-15 Blood Urea Nitrogen 13 9-23 mg/dL Creatinine 0.64 0.550-1.02 mg/dL Glomerular Filtration Rate Calc 108 >90 mL/min BUN/Creatinine Ratio 20.3 H 10.0-20.0 Serum Glucose 126 H 74-106 mg/dL Calcium Level 9.4 8.7-10.4 mg/dL Time of 1ST Reevaluation: 03:40 Reevaluation 1ST: Unchanged Patient Education/Counseling: Diagnosis, Treatment, Prognosis Family Education/Counseling: No Family Present SEPSIS Sepsis Screen Date sepsis recognized/suspect: Nov 14, 2024 Time Sepsis recognized/suspect: 245 Recent Procedure: No On Antibiotic Therapy: No Respiratory Rate >20: No Heart Rate >90: No Temp<36 C (96.8 F) or >38.3 C: No SBP <90 or MAP <65 mmHG: No New Acute Mental Status Change: No Is the patient on CPAP, BIPAP,: No Physician Orders Urinalysis (11/14/24 03:08) Ct Ab Pel Wo Con-No Oral Or Iv (11/14/24 04:51) Vital Signs Date Time Temp Pulse Resp B/P (MAP) Pulse Ox O2 Delivery O2 Flow Rate FiO2 11/14/24 02:53 98.1 87 20 184/96 (125) 96 98.1 Laboratory Tests Test 11/14/24 03:18 White Blood Count 12.0 10^3/uL (4.4-10.8) H Departure 1 Departure Time of Disposition: 05:25 (Patient presented with abdominal pain that was concerning for possible appendicits, gastritis, cholecystitis, colitis, gastroenteritis, or orther possible surgical emergency. Data: 1. I ordered and reviewed the result of at least 3 labs including a CBC, BMP, and Urinalysis. 2. I independently interpreted the following tests: CT Abdoment and Pelvis is concerning for benign abdomen.Risk:This patient has a high risk of morbidity due to further diagnostic testing or treatment and may suffer from an acute abdominal process disorder. Fortunately workup reveals benign abdomen and likely gastroenteritis and patient can be safely discharged to home with outpatient follow up.) Impression: Primary Impression: Gastroenteritis Disposition: HOME / SELF CARE / HOMELESS Condition: Stable Referrals: ALBINA FREITAS MD Additional Instructions: You likely have gastroenteritis. Your labs were benign and your CT scan was normal today. It is important to stay well hydrated and well rested. This usually resolves within 1 week. You were referred to gastroenterology. Please call for an appointment if you are still having issues. If your symptoms worsen or you have any other concerns please return to the ER. Discharged With: Self Critical Care Note Critical Care Time?: No Stability Stability form required: No I personally scribed for ROCIO CABALLERO MD ([email or web address]) on 11/14/24 at 03:19. Electronically submitted by Joanne Cantu ([email or web address]). ROCIO CABALLERO MD Nov 14, 2024 03:19
[2024-11-14 03:36] LABS: Basophils # (auto) 0.1 10 ^3/uL (0-0.2); Basophils % (auto) 1.1 % (0.0-2.0); Eosinophils # (auto) 0.1 10 ^3/uL (0-0.8); Eosinophils % (auto) 1.2 % (0.0-7.0); Hematocrit 42.8 % (36.0-46.0); Hemoglobin 14.2 g/dL (12.2-16.2); Lymphocytes # (auto) 2.1 10 ^3/uL (0.4-5.4); Lymphocytes % (auto) 17.1 % (10.0-50.0); Mean Corpuscular Hemoglobin 27.8 pg (28.0-32.0); Mean Corpuscular Hgb Conc. 33.2 g/dL (32.0-36.0); Mean Corpuscular Volume 83.8 fL (80.0-100.0); Monocytes # (auto) 0.7 10 ^3/uL (0-1.3); Monocytes % (auto) 5.9 % (0.0-12.0); Neutrophils % (auto) 74.7 % (37.0-80.0); Platelet Count (auto) 259 10^3/uL (140-450); Red Cell Distribution Width 14.8 % (11.8-14.3)
[2024-11-14 03:50] LABS: Sodium 143 mmol/L (136-145)
[2024-11-14 03:52] LABS: Anion Gap 9 (5-15); Calcium 9.4 mg/dL (8.7-10.4); Carbon Dioxide 27 mmol/L (20-31)
[2024-11-14 03:57] LABS: BUN/Creatinine Ratio 20.3 (10.0-20.0); Blood Urea Nitrogen 13 mg/dL (9-23)
[2024-11-14 03:58] LABS: Chloride 107 mmol/L (98-107); Glucose 126 mg/dL (74-106); Potassium 3.5 mmol/L (3.5-5.1)
--- NOTE | 2024-11-14 05:20 | DVH ---
Exam: CT CT AB PEL WO CON-NO ORAL OR IV History: abdominal pain Comparison Study: CT CT AB PEL WO CON-NO ORAL OR IV on DOS: 09/18/24 Technique: Multidetector spiral CT of the abdomen was performed from lung bases to pubic symphysis. I maging was performed without IV contrast. Axial, coronal and sagittal multiplanar reformats were obta ined from the axial data set by the technologist. Radiation Dose : 1. Abdomen/Pelvis: CTDIvol 27.88 mGy, DLP 1323.71 mGy*cm. Findings: Evaluation of solid organs is limited due to lack of intravenous contrast use. Lung Bases: No acute or significant lung base finding. Normal heart size. No pleural or pericardial effusion. Liver: Hepatomegaly. Mildly nodular hepatic contours may represent early changes of cirrhosis. Gallbladder and Biliary Tree: Unremarkable Spleen: Unremarkable Pancreas: The pancreas is grossly normal in appearance. Adrenal Glands: Unremarkable Kidneys: Kidneys are grossly normal without calculi or hydronephrosis. Bladder: Grossly unremarkable for degree of distention. Bowel: The stomach is grossly normal in appearance. Diverticulosis. The appendix is not visualized; h owever, no secondary findings of acute appendicitis identified. Ascites: Absent Lymphadenopathy: No mesenteric, retroperitoneal or periportal lymphadenopathy. Abdominal Wall and Mesentery: Unremarkable. Vasculature: The visualized abdominal aorta is normal in size and caliber. Evaluation of abdominal a nd pelvic vessels is limited due to lack of intravenous contrast. Pelvic Organs: Unremarkable Musculoskeletal: Chronic appearing L1 vertebral body compression fracture. IMPRESSION: No acute abdominal or pelvic findings. Radiation optimization: All CT scans at this facility use at least one of these dose optimization divya hniques: automated exposure control mA and/or kV adjustment per patient size (includes targeted exam s where dose is matched to clinical indication) or iterative reconstruction.
[2024-11-14 06:30] VITALS: BP 159/99; PULSE 80; TEMP 98.7
[2024-11-14 07:00] VITALS: RESP 16
== END 2024-11-14 06:58 | disposition home or self-care (01) ==
LOC: ER 02:25
DX: K52.9 Noninfective gastroenteritis and colitis, unspecified (principal); I11.0 Hypertensive heart disease with heart failure; I50.9 Heart failure, unspecified; E11.9 Type 2 diabetes mellitus without complications; J44.9 Chronic obstructive pulmonary disease, unspecified; Z79.82 Long term (current) use of aspirin; Z79.899 Other long term (current) drug therapy; Z90.710 Acquired absence of both cervix and uterus; Z98.890 Other specified postprocedural states; Z88.1 Allergy status to other antibiotic agents; Z88.2 Allergy status to sulfonamides; Z88.8 Allergy status to other drugs, medicaments and biological substances
CPT/HCPCS: 36415; 74176; 80048; 85025

== ENCOUNTER 2024-11-14 06:58 | Emergency (ER) | payer OTHER, MEDICAID ==
[~2024-11-14] VITALS: Ht 165.1 cm; Wt 133.7 kg
--- NOTE | 2024-11-14 07:55 | ED.PDOC ---
Psychiatric HPI Comments 49 y/o F, with PMHx of obesity, COPD, CHF, DM, and HTN presents to the ED for CC of anxiety. Patient states, that she has been experiencing increased anxiety x1hour with associated chronic intermittent suicidal ideations since, the age of [age] years old. 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 Patient endorses, being seen at [facility] [id number] ago for abdominal pain, was then seen for SS earlier today (11/15/23). Patient was departed with unremarkable findings. Patient endorses, calling bilingual social worker d/t being departed home with no Rx triggering her suicidal thoughts. Patient comments, "I'd like all my medic ations refilled, but that's not even the point I am dying and do not know what to do". Patient denies homicidal ideation, auditory hallucinations, or visual hallucinations. Chief Complaint: Anxiety Time Seen by MD: 07:30 Primary Care Provider: DANIEL Reviewed Notes: Nurses Notes, Medications, Allergies Information Source: Patient Mode of Arrival: Ambulatory Severity: Able to Care for Self Severity of Pain: Moderate Severity of Mental Status: Moderate Severity of Symptoms: Moderate Timing: Months Duration: Since onset Prehospital treatment: None Presents with: Anxiety, Suicidal Ideation Ingestion: None Circumstance: None Current substance abuse: None Stressors: None History of: None Quality: Hopelessness Location: None Location of pain or injury: None Associated signs and symptoms: Anxiety Past Medical History PAST MEDICAL HISTORY: CHF, COPD, DM, HTN, Thyroid Surgical History: , 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 History: 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 Family History Family History: No family hx of Cancer, No family hx of DM, No family hx of Heart dottie, No family hx of HTN, No family hx of Stroke Social History Smoker: Quit Less Than 1 Year, Cigarettes Alcohol: Occasionally Drugs: Marijuana Lives In: Home Constitutional: denies: chills, diaphoresis, fatigue, fever, malaise, sweats, weakness, others EENTM: denies: blurred vision, double vision, ear bleeding, ear discharge, ear drainage, ear pain, ear ringing, eye pain, eye redness, hearing loss, mouth pain, mouth swelling, nasal discharge, nose bleeding, nose congestion, nose pain, photophobia, tearing, throat pain, throat swelling, voice changes, others Respiratory: denies: cough, hemoptysis, orthopnea, SOB at rest, shortness of breath, SOB with excertion, stridor, wheezing, others Cardiovascular: denies: chest pain, dizzy spells, diaphoresis, Dyspnea on exertion, edema, irregular heart beat, left arm pain, lightheadedness, palpitations, PND, syncope, others Gastrointestinal: denies: abdomen distended, abdominal pain, blood streaked bowels, constipated, diarrhea, dysphagia, difficulty swallowing, hematemesis, melena, nausea, poor appetite, poor fluid intake, rectal bleeding, rectal pain, vomiting, others Genitourinary: denies: abnormal vagina bleeding, burning, dyspareunia, dysuria, flank pain, frequency, hematuria, incontinence, pain, , vagina discharge, urgency, others Neurological: denies: dizziness, fainting, headache, left sided numbness, left sided weakness, numbness, paresthesia, pre-existing deficit, right sided numbness, right sided weakness, seizure, speech problems, tingling, tremors, we akness, others Musculoskeletal: denies: back pain, gout, joint pain, joint swelling, muscle pain, muscle stiffness, neck pain, others Integumetry: denies: bruises, change in color, change in hair/nails, dryness, laceration, lesions, lumps, rash, wounds, others Allergic/Immunocompromised: denies: Difficulty Healing, Frequent Infections, Hives, Itching, others Hematologic/Lymphatic: denies: anemia, blood clots, easy bleeding, easy bruising, swollen glands, others Endocrine: denies: excessive hunger, excessive sweating, excessive thirst, excessive urination, flushing, intolerance to cold, intolerance to heat, unexplained weight gain, unexplained weight loss, others Psychiatric: reports: suicidal; denies: anxiety, bipolar disorder, depression, hopeless, panic disorder, schizophrenia, sleepless, others All Other Systems: Reviewed and Negative Physical Exam General Appearance: Moderate Distress HEENT: Normal ENT Inspection, Pharynx Normal, TMs Normal Neck: Full Range of Motion, Non-Tender, Normal, Normal Inspection Respiratory: Chest Non-Tender, Lungs Clear, No Accessory Muscle Use, No Respiratory Distress, Normal Breath Sounds Cardiovascular: No Edema, No JVD, No Murmur, No Gallop, Normal Peripheral Pulses, Regular Rate/Rhythm Breast Exam: Deferred Gastrointestinal: No Organomegaly, Non Tender, No Pulsatile Mass, Normal Bowel Sounds, Soft Genitalia: Deferred Pelvic: Deferred Rectal: Deferred Extremities: No calf tenderness, Normal capillary refill, Normal inspection, Normal range of motion, Non-tender, No pedal edema Musculoskeletal : Apperance: Normal Neurologic: Alert, color television console monitor II-XII nml as Tested, No Motor Deficits, Normal Affect, Normal Mood, No Sensory Deficits Cerebellar Function: Normal Reflexes: Normal Skin: Dry, Normal Color, Warm Peripheral Pulses: 3+ Radial (R), 3+ Radial (L) Lymphatic: No Adenopathy Was a procedure done? Was a procedure done?: No Psych Differential Dx Psych. Differential Dx: Anxiety, Depression, Hopeless Intoxication Differential Dx: N/A X-Ray, Labs, Meds, VS Patient alert. Was recently seen in this hospital. Has psychiatric illness. Vitals stable. Reviewed her previous visit. She was diagnosed with gastroenteritis. CT scan of the abdomen which was done few hours ago was within normal limits. WBC was slightly elevated. Possibly from dehydration. Was told to drink plenty of fluids. Ambulating without difficulty. Medically cleared. Psychiatric evaluation. Time of 1ST Reevaluation: 08:00 Reevaluation 1ST: Improved Patient Education/Counseling: Diagnosis, Treatment Family Education/Counseling: No Family Present Departure 1 Departure Time of Disposition: 08:16 Impression: Primary Impression: Suicidal ideation Disposition: 30 STILL A PATIENT Condition: Good Critical Care Note Critical Care Time?: No Stability Stability form required: No Heart Score Heart Score: Heart Score Response (Comments) Value History N/A 0 EKG N/A 0 Age N/A 0 Risk Factors N/A 0 Troponin N/A 0 Total 0 I personally scribed for DASH RAO MD ([email or web address]) on 11/14/24 at 07:55. Electronically submitted by Laurie Gauthier ([email or web address]). I personally scribed for DASH RAO MD ([email or web address]) on 11/14/24 at 08:01. Electronically submitted by Laurie Gauthier ([email or web address]). DASH RAO MD Nov 14, 2024 07:55
--- NOTE | 2024-11-14 14:26 | DVHINCON2 ---
Date of Service if different f: Nov 14, 2024 Consultation ([facility]) Appetite: Limited Appearance: Stated age, Groomed Psychomotor activity: Restless Behavioral: Cooperative Eye contact: Appropriate Speech: Pressured Affect: Mood Congruent Mood: Anxious Thought processes: Linear/Goal-directed Thought content: WNL Suicidal ideations: Absent Homicidal ideations: Absent Orientation: Person, Place, Time, Situation Memory intact: Recent Intellect: Average Abstractability: WNL Concentration: Adequate Attention: Adequate Judgement: WNL Insight: Fair Vitals Vital Signs Date Time Temp Pulse Resp B/P (MAP) Pulse Ox O2 Delivery O2 Flow Rate FiO2 11/14/24 12:41 98.2 72 18 167/89 (115) 96 98.2 11/14/24 09:38 Room Air Medication adjusted: Yes Diagnosis: MDD, recurrent, unspecified, generalized anxiety Plan : This is a 49-year-old female with hx of depression and anxiety c/o of increased anxiety due to recent social and health stressors. She presently denies Si/Hi with plan and may discharge home after medical clearance with referrals for outpatient mental follow up Recommend to restart Zoloft 50mg po daily, buspar 15mg po bid Discussed returning to ED if Si/Hi and she verbalized understanding History of Present Illness Reason for Consult : patient reporting increased anxiety and suicidal thoughts HPI : This is a 49-year-old female with hx of anxiety and depression, return to Ed after discharge earlier for abdominal pain Patient is evaluated via telepsychiatry. She reports feeling more anxiety due to recently learning boyfriend of 7 years was unfaithful. She became angry and this has led to suicidal ideation in the past. Also per chart review, she reported credit specialist reporting she may have 3-4 years to live due to health conditions. She does frequently have depressed mood. She denies thoughts of not wanting to live. She denies suicidal ideation with plan or intent. She denies homicidal ideation. She denies auditory/visual hallucinations or paranoid thoughts. She reports decreased appetite. She has poor sleep and reports hx of narcolepsy, sometimes falls asleep while washing her hands. She is sleeping but not extended periods. Past Psychiatric History : She reports prior diagnoses of anxiety, depression, " split personality disorder." She describes this as family reports of her sometimes using a male voice when talking in her sleep. She denies current outpatient mental health follow up. She did have a therapist in the past and stopped following up. She was prescribed Zoloft 100mg, buspirone 10 or 15mg TID, Xanax or Ativan and stopped meds about one year ago. She would like to restart her medications. She reports one psych admission 13-14 years ago after suicide attempt of OD on bottle of Soma pills. She denies other suicide attempt or psych admissions. Past Medical History : She reports hx of narcolepsy. Per chart review, hx of COPD, CHF, DM, HTN, and obesity Social History : She is not . She has 2 adult children. She lives with family friends who are also her caregiver. She is not employed and receives SSI. She reports occasional use of marijuana eatables for pain. She sometimes uses cigarettes. She denies other drugs or alcohol use. She reports father, had hx of bipolar disorder. No known hx of completed suicides in the family. She has no access to firearms. PAUL LONDON [facility] Nov 14, 2024 14:26
[2024-11-14 16:04] VITALS: PULSE 97; RESP 19; O2SAT 97
[2024-11-14 17:09] VITALS: BP 143/88; PULSE 89; RESP 18; TEMP 98.6; O2SAT 96
== END 2024-11-14 17:09 | disposition home or self-care (01) ==
LOC: ER 06:58
DX: R45.851 Suicidal ideations (principal); F10.90 Alcohol use, unspecified, uncomplicated; F12.90 Cannabis use, unspecified, uncomplicated; I11.0 Hypertensive heart disease with heart failure; I50.9 Heart failure, unspecified; J44.9 Chronic obstructive pulmonary disease, unspecified; E11.9 Type 2 diabetes mellitus without complications; E66.9 Obesity, unspecified; Z91.51 Personal history of suicidal behavior; Z90.710 Acquired absence of both cervix and uterus; Z98.890 Other specified postprocedural states; Z87.891 Personal history of nicotine dependence; Z68.42 Body mass index [BMI] 45.0-49.9, adult; Y90.9 Presence of alcohol in blood, level not specified

== ENCOUNTER 2024-11-24 21:54 | Emergency (ER) | payer OTHER, MEDICAID ==
[~2024-11-24] VITALS: Ht 165.1 cm; Wt 127.2 kg
--- NOTE | 2024-11-24 22:06 | ED.PDOC ---
History of Present Illness Chief Complaint: Shortness of Breath Primary Care Provider: NONE Allergies: Coded Allergies: Ciprofloxacin (Verified Allergy, Unknown, 05/27/19) Latex (Verified Allergy, Unknown, 09/18/24) Sulfa Drugs (Verified Allergy, Unknown, 05/27/19) Home Meds Reported Medications Chlorpheniramine Maleate (Allergy) 4 Mg Tab, 1 TAB PO TID for 10 Days 05/31/24 Prednisone (Prednisone) 10 Mg Tab, 10 MG PO BID, MG 05/31/24 Sildenafil Citrate (Revatio) 20 Mg Tab, 20 MG PO TID, TAB 05/31/24 Lorazepam (ATIVAN TABLET) 0.5 Mg Tb, 2 MG PO BIDPRN PRN for ANXIETY, TAB 05/31/24 Levothyroxine Sodium (SYNTHROID TABLET) 50 Mcg Tb, 25 MCG PO QAM, TAB 05/31/24 Amlodipine Besylate (NORVASC TABLET) 5 Mg Tb, 5 MG PO DAILY, TAB 05/31/24 Furosemide (Furosemide) 40 Mg Tab, 40 MG PO BID, TAB 05/31/24 Dicyclomine Hcl (Dicyclomine Hcl) 20 Mg Tab, 20 MG PO TID, TAB 05/31/24 Albuterol Sulfate (Ventolin) 2.5 Mg/0.5 Ml Nb, 1 VIAL NEB Q6HR PRN for PRN, #120 VIAL 5 Refills 12/19/14 Fluticasone Propionate (FLOVENT HFA 110Mcg INH) 110 Mcg Ih, INH DAILY, #12 12/19/14 Gabapentin (Gabapentin) 400 Mg Cap, 600 MG PO TID, #270 12/19/14 Atenolol (Atenolol) 50 Mg Tab, PO DAILY, #90 12/19/14 Aspirin (Aspirin Ec Low Dose) 81 Mg Tab, PO DAILY, #90 12/19/14 Montelukast Sodium (MONTELUKAST SODIUM) 10 Mg Tab, PO HS, #30 12/19/14 Albuterol Sulfate (Ventolin Hfa) Aer, INH DAILY, #18 12/19/14 Hydrocodone-Acetaminophen (Hydrocodone/Acetaminophen) 1 Tab Tab, PO Q6HP for PAIN, #90 12/19/14 Past Medical History PAST MEDICAL HISTORY: CHF, COPD, DM, HTN, Thyroid Surgical History: , 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 Was a procedure done?: No Differential Dx Considerations may include: anemia, electrolyte imbalance, CHF, COPD, anxiety Time of 1ST Reevaluation: 22:05 Reevaluation 1ST: Unchanged Patient Education/Counseling: Diagnosis, Treatment Family Education/Counseling: No Family Present SEPSIS Sepsis Screen Physician Orders Troponin-I Hs (11/24/24 22:04) Complete Blood Count (11/24/24 22:04) B-Type Natriuretic Peptide (11/24/24 22:04) D-Dimer (11/24/24 22:04) Chest Portable (11/24/24 22:04) Basic Metabolic Panel (11/24/24 22:04) Electrocardigram (11/24/24 22:04) Troponin-I Hs (11/24/24 23:04) Troponin-I Hs (11/25/24 01:04) Albuterol Medneb (Ventolin Medneb) (11/24/24 22:15) Ipratropium Medneb (Atrovent Medneb) (11/24/24 22:15) Dexamethasone Injection (Decadron Inject (11/24/24 22:15) Critical Care Note Critical Care Time?: No Stability Stability form required: No Heart Score Heart Score: Heart Score Response (Comments) Value History N/A 0 EKG N/A 0 Age N/A 0 Risk Factors N/A 0 Troponin N/A 0 Total 0 I personally scribed for MARKY SOTO MD ([email or web address]) on 11/24/24 at 22:06. Electronically submitted by Luis F Marcos ([facility] I personally scribed for MARKY SOTO MD ([email or web address]) on 11/24/24 at 22:07. Electronically submitted by Luis F Marcos ([facility] MARKY SOTO MD Nov 24, 2024 22:06
--- NOTE | 2024-11-24 22:11 | ED.PDOC ---
History of Present Illness HPI Comments 49 year old female came to ER due to shortness of breath. Patient is morbidly obese, has history of hypertension,, diabetes, CHF, COPD, Hashimotos disease. States earlier today she started experiencing generalized weakness, dizziness, headaches, and shortness of breath. States she almost passed out earlier. Freddie jay appears very anxious at this time. Patient states he has a history of being on hospice and some how recently was removed. Patient states some concerns related to insurance issues. Vital signs were stable on arrival. Chief Complaint: Shortness of Breath Time Seen by MD: 22:11 Primary Care Provider: NONE Reviewed Notes: Nurses Notes Allergies: Coded Allergies: Ciprofloxacin (Verified Allergy, Unknown, 05/27/19) Latex (Verified Allergy, Unknown, 09/18/24) Sulfa Drugs (Verified Allergy, Unknown, 05/27/19) Home Meds Reported Medications Chlorpheniramine Maleate (Allergy) 4 Mg Tab, 1 TAB PO TID for 10 Days 05/31/24 Prednisone (Prednisone) 10 Mg Tab, 10 MG PO BID, MG 05/31/24 Sildenafil Citrate (Revatio) 20 Mg Tab, 20 MG PO TID, TAB 05/31/24 Lorazepam (ATIVAN TABLET) 0.5 Mg Tb, 2 MG PO BIDPRN PRN for ANXIETY, TAB 05/31/24 Levothyroxine Sodium (SYNTHROID TABLET) 50 Mcg Tb, 25 MCG PO QAM, TAB 05/31/24 Amlodipine Besylate (NORVASC TABLET) 5 Mg Tb, 5 MG PO DAILY, TAB 05/31/24 Furosemide (Furosemide) 40 Mg Tab, 40 MG PO BID, TAB 05/31/24 Dicyclomine Hcl (Dicyclomine Hcl) 20 Mg Tab, 20 MG PO TID, TAB 05/31/24 Albuterol Sulfate (Ventolin) 2.5 Mg/0.5 Ml Nb, 1 VIAL NEB Q6HR PRN for PRN, #120 VIAL 5 Refills 12/19/14 Fluticasone Propionate (FLOVENT HFA 110Mcg INH) 110 Mcg Ih, INH DAILY, #12 12/19/14 Gabapentin (Gabapentin) 400 Mg Cap, 600 MG PO TID, #270 12/19/14 Atenolol (Atenolol) 50 Mg Tab, PO DAILY, #90 12/19/14 Aspirin (Aspirin Ec Low Dose) 81 Mg Tab, PO DAILY, #90 12/19/14 Montelukast Sodium (MONTELUKAST SODIUM) 10 Mg Tab, PO HS, #30 12/19/14 Albuterol Sulfate (Ventolin Hfa) Aer, INH DAILY, #18 12/19/14 Hydrocodone-Acetaminophen (Hydrocodone/Acetaminophen) 1 Tab Tab, PO Q6HP for PAIN, #90 12/19/14 Information Source: Patient Mode of Arrival: Ambulatory Severity: Moderate Timing: Hours Duration: Since onset Prehospital treatment: None Past Medical History PAST MEDICAL HISTORY: CHF, COPD, DM, HTN, Thyroid Past Medical History (Other): Hashimotos disease Surgical History: , Hysterectomy 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 History: 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 Family History Family History: No family hx of Cancer, No family hx of DM, No family hx of Heart dottie, No family hx of HTN, No family hx of Stroke Social History Smoker: Quit Less Than 1 Year, Cigarettes Alcohol: Occasionally Drugs: Marijuana Lives In: Home Constitutional: reports: fatigue, weakness; denies: chills, diaphoresis, fever, malaise, sweats, others EENTM: denies: blurred vision, double vision, ear bleeding, ear discharge, ear drainage, ear pain, ear ringing, eye pain, eye redness, hearing loss, mouth pain, mouth swelling, nasal discharge, nose bleeding, nose congestion, nose pain, photophobia, tearing, throat pain, throat swelling, voice changes, others Respiratory: reports: SOB at rest, shortness of breath; denies: cough, hemoptysis, orthopnea, SOB with excertion, stridor, wheezing, others Cardiovascular: denies: chest pain, dizzy spells, diaphoresis, Dyspnea on exertion, edema, irregular heart beat, left arm pain, lightheadedness, palpitations, PND, syncope, others Gastrointestinal: denies: abdomen distended, abdominal pain, blood streaked bowels, constipated, diarrhea, dysphagia, difficulty swallowing, hematemesis, melena, nausea, poor appetite, poor fluid intake, rectal bleeding, rectal pain, vomiting, others Genitourinary: denies: abnormal vagina bleeding, burning, dyspareunia, dysuria, flank pain, frequency, hematuria, incontinence, pain, , vagina discharge, urgency, others Neurological: reports: dizziness, fainting, headache; denies: left sided numbness, left sided weakness, numbness, paresthesia, pre-existing deficit, right sided numbness, right sided weakness, seizure, speech problems, tingling, tremors, weakness, others Musculoskeletal: denies: back pain, gout, joint pain, joint swelling, muscle pain, muscle stiffness, neck pain, others Integumetry: denies: bruises, change in color, change in hair/nails, dryness, laceration, lesions, lumps, rash, wounds, others Allergic/Immunocompromised: denies: Difficulty Healing, Frequent Infections, Hives, Itching, others Hematologic/Lymphatic: denies: anemia, blood clots, easy bleeding, easy bruising, swollen glands, others Endocrine: denies: excessive hunger, excessive sweating, excessive thirst, excessive urination, flushing, intolerance to cold, intolerance to heat, unexplained weight gain, unexplained weight loss, others Psychiatric: reports: anxiety; denies: bipolar disorder, depression, hopeless, panic disorder, schizophrenia, sleepless, suicidal, others Physical Exam General Appearance: Moderate Distress (Patient appears to be in [id number] distress due to shortness a breath concerns. Patient appears to be in poor overall health.), Obese HEENT: Normal ENT Inspection, Pharynx Normal, TMs Normal Neck: Full Range of Motion, Non-Tender, Normal, Normal Inspection Respiratory: Chest Non-Tender, No Accessory Muscle Use, No Respiratory Distress, Other (As you rhonchi and mild wheezing appreciated in bilateral global lung montoya.) Cardiovascular: No Edema, No JVD, No Murmur, No Gallop, Normal Peripheral Pulses, Regular Rate/Rhythm Breast Exam: Deferred Gastrointestinal: No Organomegaly, Non Tender, No Pulsatile Mass, Normal Bowel Sounds, Soft Genitalia: Deferred Pelvic: Deferred Rectal: Deferred Extremities: No calf tenderness, Normal capillary refill Musculoskeletal : Apperance: Normal Neurologic: Alert, No Motor Deficits, Normal Affect, Normal Mood, No Sensory Deficits Cerebellar Function: Normal Reflexes: Normal Skin: Dry, Normal Color, Warm Lymphatic: No Adenopathy Was a procedure done? Was a procedure done?: No Differential Dx Considerations may include: anemia,electrolyte imbalance, CHF, COPD, anxiety X-Ray, Labs, Meds, VS Vital Signs Date Time Temp Pulse Resp B/P (MAP) Pulse Ox O2 Delivery O2 Flow Rate FiO2 11/25/24 00:15 97.6 99 18 111/58 (75) 93 97.6 11/24/24 23:11 18 93 Room Air* 0 21 11/24/24 22:10 97.6 99 18 111/58 (75) 93 97.6 11/24/24 22:09 18 93 Room Air* 0 21 Lab Test 11/24/24 22:58 11/24/24 22:08 Range/Units Troponin I High Sensitivity < 3 L < 3 L </=34 ng/L White Blood Count 13.4 H 4.4-10.8 10^3/uL Red Blood Count 5.15 4.0-5.20 10^6/uL Hemoglobin 14.3 12.2-16.2 g/dL Hematocrit 43.7 36.0-46.0 % Mean Corpuscular Volume 84.9 80.0-100.0 fL Mean Corpuscular Hemoglobin 27.7 L 28.0-32.0 pg Mean Corpuscular Hemoglobin Concent 32.6 32.0-36.0 g/dL Red Cell Distribution Width 15.2 H 11.8-14.3 % Platelet Count 252 140-450 10^3/uL Mean Platelet Volume 8.8 6.9-10.8 fL Neutrophils (%) (Auto) 86.8 H 37.0-80.0 % Lymphocytes (%) (Auto) 7.4 L 10.0-50.0 % Monocytes (%) (Auto) 4.3 0.0-12.0 % Eosinophils (%) (Auto) 0.6 0.0-7.0 % Basophils (%) (Auto) 0.9 0.0-2.0 % Neutrophils # (Auto) 11.6 H 1.6-8.6 10 ^3/uL Lymphocytes # (Auto) 1.0 0.4-5.4 10 ^3/uL Monocytes # (Auto) 0.6 0-1.3 10 ^3/uL Eosinophils # (Auto) 0.1 0-0.8 10 ^3/uL Basophils # (Auto) 0.1 0-0.2 10 ^3/uL Nucleated Red Blood Cells 0.1 % D-Dimer, Quantitative 0.55 H 0.0-0.49 mg/L FEU Sodium Level 143 136-145 mmol/L Potassium Level 4.0 3.5-5.1 mmol/L Chloride Level 109 H 98-107 mmol/L Carbon Dioxide Level 26 20-31 mmol/L Anion Gap 8 5-15 Blood Urea Nitrogen 12 9-23 mg/dL Creatinine 0.65 0.550-1.02 mg/dL Glomerular Filtration Rate Calc 107 >90 mL/min BUN/Creatinine Ratio 18.5 10.0-20.0 Serum Glucose 148 H 74-106 mg/dL Calcium Level 9.8 8.7-10.4 mg/dL B-Type Natriuretic Peptide 8.05 0-100 pg/mL Current Medications Medications (Trade) Dose Ordered Sig/Gissel Route Start Time Stop Time Status Last Admin Albuterol (Ventolin Medneb) 5 mg ONCE ONCE NEB 11/24/24 22:15 11/24/24 22:16 DC 11/24/24 23:11 Ipratropium [place] (Atrovent Medneb) 0.5 mg ONCE ONCE NEB 11/24/24 22:15 11/24/24 22:16 DC 11/24/24 23:11 Dexamethasone Sodium Phosphate (Decadron Injection) 10 mg ONCE ONCE IM 11/24/24 22:15 11/24/24 22:16 DC 11/24/24 23:08 Azithromycin (Zithromax Tablet) 500 mg ONCE ONCE PO 11/24/24 23:30 11/24/24 23:31 DC 11/25/24 00:14 EXAM: XY CHEST PORTABLE CLINICAL HISTORY: Shortness of breath TECHNIQUE: Single AP view of the chest WID: COMPARISON: XY CHEST XRAY 1 VIEW on DOS: 09/18/24 FINDINGS: Lines and tubes: None Chest: Mild cardiomegaly. Mild opacity in the lateral left lung base. No pneumothorax. Right lung is clear. The osseous structures are grossly intact. IMPRESSION: Small opacity in the lateral left lung base which could reflect superimposed soft tissues, pneumonia, pleural effusion, or atelectasis. X-Ray, Labs, Meds, VS Comment All studies performed the ED were evaluated by me personally. Serum studies revealed a mild leukocytosis that was un-sourced. Urine was pending. Patient informed nursing that she was going to leave the facility. Nursing informed her that could be dark consequences to her decision including the possibility of . Patient stated she understood and signed the AMA form prior to leaving the campus. Prior to the patient leaving [facility], she decided to stay for treatment. Patient received treatment and laboratory and imaging studies returned. I again attempted to notify the patient of the findings, but the patient had left the facility again and had signed another AMA form. Time of 1ST Reevaluation: 23:05 Reevaluation 1ST: Improved Consultation: PCP Patient Education/Counseling: Diagnosis, Treatment Family Education/Counseling: Diagnosis, Treatment, No Family Present SEPSIS Sepsis Screen Recent Procedure: No On Antibiotic Therapy: No Respiratory Rate >20: No Heart Rate >90: No Temp<36 C (96.8 F) or >38.3 C: No SBP <90 or MAP <65 mmHG: No New Acute Mental Status Change: No Is the patient on CPAP, BIPAP,: No Physician Orders Chest Portable (11/24/24 22:04) Electrocardigram (11/24/24 22:04) Vital Signs Date Time Temp Pulse Resp B/P (MAP) Pulse Ox O2 Delivery O2 Flow Rate FiO2 11/25/24 00:15 97.6 99 18 111/58 (75) 93 97.6 11/24/24 23:11 18 93 Room Air* 0 21 11/24/24 22:10 97.6 99 18 111/58 (75) 93 97.6 11/24/24 22:09 18 93 Room Air* 0 21 Laboratory Tests Test 11/24/24 22:08 White Blood Count 13.4 10^3/uL (4.4-10.8) H Medications Medications Dose Ordered Sig/Gissel Route Start Time Stop Time Status Last Admin Dose Admin Albuterol 5 mg ONCE ONCE NEB 11/24/24 22:15 11/24/24 22:16 DC 11/24/24 23:11 Azithromycin 500 mg ONCE ONCE PO 11/24/24 23:30 11/24/24 23:31 DC 11/25/24 00:14 Dexamethasone Sodium Phosphate 10 mg ONCE ONCE IM 11/24/24 22:15 11/24/24 22:16 DC 11/24/24 23:08 Ipratropium [place] 0.5 mg ONCE ONCE NEB 11/24/24 22:15 11/24/24 22:16 DC 11/24/24 23:11 Departure 1 Departure Time of Disposition: 23:06 Impression: Primary Impression: General weakness Additional Impression: Pneumonia Disposition: LEFT AGAINST MEDICAL ADVICE Condition: Fair Discharged With: Self Critical Care Note Critical Care Time?: No Stability Stability form required: No Heart Score Heart Score: Heart Score Response (Comments) Value History N/A 0 EKG N/A 0 Age N/A 0 Risk Factors N/A 0 Troponin N/A 0 Total 0 I personally scribed for GENTRY BARGER PAC ([employer]) on 11/24/24 at 22:11. Electronically submitted by Luis F Marcos ([email or web address]). I personally scribed for GENTRY BARGER PAC ([employer]) on 11/24/24 at 23:00. Electronically submitted by Luis F Marcos ([email or web address]). GENTRY BARGER PAC Nov 24, 2024 22:11
[2024-11-24 22:22] LABS: Hematocrit 43.7 % (36.0-46.0); Hemoglobin 14.3 g/dL (12.2-16.2); Mean Corpuscular Hemoglobin 27.7 pg (28.0-32.0); Mean Corpuscular Volume 84.9 fL (80.0-100.0); Nucleated Red Blood Cells % 0.1 %
[2024-11-24 22:31] LABS: Potassium 4.0 mmol/L (3.5-5.1); Sodium 143 mmol/L (136-145)
[2024-11-24 22:32] LABS: Anion Gap 8 (5-15); Carbon Dioxide 26 mmol/L (20-31)
[2024-11-24 22:33] LABS: Calcium 9.8 mg/dL (8.7-10.4)
[2024-11-24 22:36] LABS: Chloride 109 mmol/L (98-107)
[2024-11-24 22:37] LABS: BUN/Creatinine Ratio 18.5 (10.0-20.0); Blood Urea Nitrogen 12 mg/dL (9-23)
[2024-11-24 22:41] LABS: Glucose 148 mg/dL (74-106)
--- NOTE | 2024-11-24 22:42 | DVH ---
EXAM: XY CHEST PORTABLE CLINICAL HISTORY: Shortness of breath TECHNIQUE: Single AP view of the chest WID: COMPARISON: XY CHEST XRAY 1 VIEW on DOS: 09/18/24 FINDINGS: Lines and tubes: None Chest: Mild cardiomegaly. Mild opacity in the lateral left lung base. No pneumothorax. Right lung is clear. The osseous structures are grossly intact. IMPRESSION: Small opacity in the lateral left lung base which could reflect superimposed soft tissues, pneumonia, pleural effusion, or atelectasis.
[2024-11-24] MEDS: ALBUTEROL SULF 2.5 MG/0.5ML(0.5%) NEB SOLN NEB ONE (23:11)
[2024-11-24] MEDS: IPRATROPIUM BROM 0.5 MG/2.5ML INH SOL NEB ONE (23:11)
[2024-11-25] MEDS: AZITHROMYCIN 250 MG TAB PO ONE (00:14)
[2024-11-25 00:15] VITALS: BP 111/58; PULSE 99; RESP 18; TEMP 97.6; O2SAT 93
--- NOTE | 2024-11-25 23:20 | ECG ---
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
== END 2024-11-25 00:27 | disposition left against medical advice (07) ==
LOC: ER 21:54
DX: J18.9 Pneumonia, unspecified organism (principal); R53.1 Weakness; R51.9 Headache, unspecified; R42 Dizziness and giddiness; I11.0 Hypertensive heart disease with heart failure; I50.9 Heart failure, unspecified; J44.9 Chronic obstructive pulmonary disease, unspecified; E11.9 Type 2 diabetes mellitus without complications; F17.210 Nicotine dependence, cigarettes, uncomplicated; F12.90 Cannabis use, unspecified, uncomplicated; Z90.710 Acquired absence of both cervix and uterus; Z98.890 Other specified postprocedural states; Z79.52 Long term (current) use of systemic steroids; Z79.51 Long term (current) use of inhaled steroids; Z79.82 Long term (current) use of aspirin; Z79.899 Other long term (current) drug therapy; Z88.1 Allergy status to other antibiotic agents; Z88.2 Allergy status to sulfonamides; Z91.040 Latex allergy status
CPT/HCPCS: 36415; 71045; 80048; 83880; 84484; 85025; 85379; 93005; 94640; 96372; 99285; J1100